=== PATIENT | male | born 1980 | race Two or more races ===

== ENCOUNTER 2017-02-07 20:47 | Inpatient (IN) | payer MEDICAID ==
[~2017-02-07] VITALS: Ht 157.5 cm; Wt 60.0 kg
[2017-02-07 21:52] LABS: Basophils # (auto) 0 uL; Eosinophils # (auto) 0 uL; Eosinophils % (auto) 0.1 % (0.0-7.0); Hematocrit 47.7 % (41.0-53.0); Hemoglobin 15.7 g/dL (13.5-17.5); Lymphocytes # (auto) 1.2 uL; Lymphocytes % (auto) 8.9 % (10.0-50.0); Mean Corpuscular Hemoglobin 30.1 pg (28.0-32.0); Mean Corpuscular Hgb Conc. 32.8 g/dL (32.0-36.0); Mean Corpuscular Volume 91.6 fL (80.0-100.0); Mean Platelet Volume 8.3 fL (7.4-10.4); Monocytes # (auto) 0.3 uL; Monocytes % (auto) 2.6 % (0.0-12.0); Neutrophils # (auto) 11.6 uL; Neutrophils % (auto) 88.4 % (37.0-80.0); Platelet Count (auto) 321 10^3/uL (140-450); White Blood Cell 13.1 10^3/uL (4.4-10.8)
[2017-02-07 22:10] LABS: Amylase 50 U/L (25-115); Anion Gap 11 (5-15); Aspartate Aminotransferase 48 U/L (15-37); BUN/Creatinine Ratio 15.8; Blood Urea Nitrogen 28 mg/dL (7-18); Calcium 8.8 mg/dL (8.5-10.1); Carbon Dioxide 22 mmol/L (21-32); Chloride 105 mmol/L (98-107); GFR African American 56 mL/min; GFR Non-African American 46 mL/min; Glucose 113 mg/dL (74-106); Potassium 4.8 mmol/L (3.5-5.1); Sodium 138 mmol/L (136-145)
[2017-02-07 22:15] LABS: Alkaline Phosphatase 113 U/L (45-117); Bilirubin, Total 0.7 mg/dL (0.2-1.0); Total Protein 8.2 g/dL (6.4-8.2)
[2017-02-08] MEDS ORDERED: ONDANSETRON HCL 4 MG/2 ML VIAL ONE (00:40)
[2017-02-08] MEDS ORDERED: MORPHINE SULFATE 4 MG/ML SYRG ONE (00:40)
[2017-02-08] MEDS ORDERED: MORPHINE SULFATE 4 MG/ML SYRG IV ONE (00:45)
[2017-02-08] MEDS ORDERED: ONDANSETRON HCL 4 MG/2 ML VIAL IV ONE ×2 (00:45→02:00)
[2017-02-08] MEDS ORDERED: KETOROLAC TROMETH 30 MG/ML 1ML VIAL IV ONE ×2 (01:45→02:00)
[2017-02-08] MEDS ORDERED: SODIUM CHLORIDE 0.9% 1,000 ML IV ONE (01:53)
[2017-02-08] MEDS ORDERED: SODIUM CHLORIDE 0.9% 250 ML IV ONE (01:53)
[2017-02-08] MEDS ORDERED: PIPERACILLIN-TAZOB 3.375GM 100 ML IV ONE (02:00)
[2017-02-08] MEDS ORDERED: SODIUM CHLORIDE 0.9% 1,000 ML IV SCH (05:34)
[2017-02-08] MEDS ORDERED: ACETAMINOPHEN 325 MG TAB PO PRN (05:45)
[2017-02-08] MEDS ORDERED: ONDANSETRON HCL 4 MG/2 ML VIAL IV PRN (05:45)
[2017-02-08] MEDS ORDERED: TAMSULOSIN HYDROCHLORIDE 0.4 MG CAP PO ONE (05:45)
[2017-02-08] MEDS ORDERED: TEMAZEPAM 15 MG CAP PO PRN (05:45)
[2017-02-08] MEDS ORDERED: KETOROLAC TROMETH 30 MG/ML 1ML VIAL IV PRN (05:45)
[2017-02-08] MEDS ORDERED: HYDROcodone-ACET 5/325MG TAB PO PRN (05:45)
[2017-02-08] MEDS ORDERED: FAMOTIDINE 20 MG TAB PO SCH (10:00)
[2017-02-08 11:27] LABS: INR 0.96 (0.9-1.15); Partial Thromboplastin Time 23.6 sec (22.64-33.71); Prothrombin Time 10.4 sec (9.37-12.3)
[2017-02-08 12:21] VITALS: BP 122/69
== END 2017-02-08 13:13 | disposition left against medical advice (07) | DRG 465 ==
LOC: EDBD 20:47 → ER 20:47 → OVERFLOW 20:48 → EAST 02-08 07:47
PROVIDERS: ADMIT Nurse Practitioner; ATTEND Family Medicine
DX: N13.2 Hydronephrosis with renal and ureteral calculous obstruction (principal); N39.0 Urinary tract infection, site not specified; F17.210 Nicotine dependence, cigarettes, uncomplicated; D72.825 Bandemia; F12.90 Cannabis use, unspecified, uncomplicated; Z82.49 Family history of ischemic heart disease and other diseases of the circulatory system; Z84.1 Family history of disorders of kidney and ureter
CPT/HCPCS: 36415; 74176; 80053; 80074; 82150; 83690; 84484; 85025; 85610; 85730; 87040; 96365; 96375; 96376; J1885; J2405; J2543

== ENCOUNTER 2020-12-18 07:35 | Emergency (ER) | payer MEDICAID ==
[~2020-12-18] VITALS: Ht 165.1 cm; Wt 72.6 kg
[2020-12-18 07:37] VITALS: BP 139/92
== END 2020-12-18 08:49 | disposition left against medical advice (07) ==
LOC: ER 07:35
DX: J02.9 Acute pharyngitis, unspecified (principal); Z53.21 Procedure and treatment not carried out due to patient leaving prior to being seen by health care provider

== ENCOUNTER 2021-04-02 13:58 | Emergency (ER) | payer MEDICAID ==
[~2021-04-02] VITALS: Ht 167.6 cm; Wt 72.6 kg
[2021-04-02] MEDS ORDERED: ASPirin 81 mg TAB PO ONE (14:15)
[2021-04-02 14:33] LABS: Basophils # (auto) 0.1 10 ^3/uL (0-0.2); Basophils % (auto) 0.7 % (0.0-2.0); Eosinophils # (auto) 0 10 ^3/uL (0-0.8); Eosinophils % (auto) 0.2 % (0.0-7.0); Hematocrit 49.2 % (41.0-53.0); Hemoglobin 16.9 g/dL (13.5-17.5); Lymphocytes # (auto) 1.4 10 ^3/uL (0.4-5.4); Lymphocytes % (auto) 14.7 % (10.0-50.0); Mean Corpuscular Hgb Conc. 34.3 g/dL (32.0-36.0); Mean Corpuscular Volume 90.4 fL (80.0-100.0); Monocytes # (auto) 0.4 10 ^3/uL (0-1.3); Monocytes % (auto) 4.3 % (0.0-12.0); Neutrophils # (auto) 7.9 10 ^3/uL (1.6-8.6); Neutrophils % (auto) 80.1 % (37.0-80.0); Nucleated Red Blood Cells % 0.1 %; Red Blood Cells 5.44 10^6/uL (4.5-5.90); Red Cell Distribution Width 13.7 % (11.8-14.3); White Blood Cell 9.9 10^3/uL (4.4-10.8)
[2021-04-02 14:44] VITALS: BP 158/108
[2021-04-02 15:01] LABS: Calcium 9.6 mg/dL (8.5-10.1); Chloride 106 mmol/L (98-107); Potassium 4.7 mmol/L (3.5-5.1); Sodium 141 mmol/L (136-145)
[2021-04-02 15:05] LABS: Alanine Aminotransferase 66 U/L (16-61); Albumin 4.2 g/dL (3.4-5.0); Anion Gap 5 (5-15); Aspartate Aminotransferase 27 U/L (15-37); BUN/Creatinine Ratio 11.5; Blood Urea Nitrogen 13 mg/dL (7-18); Carbon Dioxide 30 mmol/L (21-32); GFR African American 92 mL/min; GFR Non-African American 76 mL/min; Glucose 120 mg/dL (74-106); Magnesium 2.6 mg/dL (1.6-2.6)
[2021-04-02 15:09] LABS: Alkaline Phosphatase 115 U/L (45-117); Bilirubin, Total 0.8 mg/dL (0.2-1.0); Total Protein 8.8 g/dL (6.4-8.2)
== END 2021-04-02 16:00 | disposition home or self-care (01) ==
LOC: EDBD 13:58 → ER 13:58
DX: R07.89 Other chest pain (principal); F15.10 Other stimulant abuse, uncomplicated; F17.210 Nicotine dependence, cigarettes, uncomplicated; F12.10 Cannabis abuse, uncomplicated
CPT/HCPCS: 36415; 71045; 80053; 83735; 84484; 85025; 93005

== ENCOUNTER 2021-07-08 08:15 | Inpatient (IN) | payer OTHER, MEDICAID ==
[~2021-07-08] VITALS: Ht 172.7 cm; Wt 66.1 kg
[2021-07-08 09:14] LABS: Basophils # (auto) 0.1 10 ^3/uL (0-0.2); Basophils % (auto) 0.8 % (0.0-2.0); Eosinophils # (auto) 0.1 10 ^3/uL (0-0.8); Eosinophils % (auto) 0.9 % (0.0-7.0); Hematocrit 45.3 % (41.0-53.0); Hemoglobin 15.4 g/dL (13.5-17.5); Lymphocytes # (auto) 2.5 10 ^3/uL (0.4-5.4); Lymphocytes % (auto) 29.7 % (10.0-50.0); Mean Corpuscular Hemoglobin 30.6 pg (28.0-32.0); Monocytes # (auto) 0.5 10 ^3/uL (0-1.3); Monocytes % (auto) 6.3 % (0.0-12.0); Neutrophils # (auto) 5.3 10 ^3/uL (1.6-8.6); Neutrophils % (auto) 62.3 % (37.0-80.0); Nucleated Red Blood Cells % 0.1 %; Red Blood Cells 5.03 10^6/uL (4.5-5.90); White Blood Cell 8.5 10^3/uL (4.4-10.8)
[2021-07-08] MEDS ORDERED: SODIUM CHLORIDE 0.9% 1,000 ML IV ONE ×3 (09:15→12:00)
[2021-07-08] MEDS ORDERED: KETOROLAC TROMETH 30 MG/ML 1ML VIAL IV ONE (09:15)
[2021-07-08 09:35] LABS: Potassium 3.9 mmol/L (3.5-5.1)
[2021-07-08 09:43] LABS: Albumin 3.9 g/dL (3.4-5.0); BUN/Creatinine Ratio 10.7; Bilirubin, Total 0.8 mg/dL (0.2-1.0); Calcium 8.9 mg/dL (8.5-10.1); Total Protein 7.7 g/dL (6.4-8.2)
[2021-07-08] MEDS ORDERED: ONDANSETRON HCL 4 MG/2 ML VIAL IV ONE (10:00)
[2021-07-08] MEDS ORDERED: TAMSULOSIN HYDROCHLORIDE 0.4 MG CAP PO ONE (12:00)
[2021-07-08] MEDS ORDERED: MORPHINE SULFATE INJECTION 2 MG/ML SYRG IV PRN ×2 (12:30)
[2021-07-08] MEDS ORDERED: ONDANSETRON HCL 4 MG/2 ML VIAL IV PRN (12:30)
[2021-07-08] MEDS ORDERED: NITROGLYCERIN 0.4 MG SL TAB SL PRN (12:30)
[2021-07-08] MEDS ORDERED: ACETAMINOPHEN 500 MG TAB PO PRN (12:30)
[2021-07-08 14:25] LABS: Urine Amorphous Crystal MOD /hpf (None Seen); Urine Bacteria FEW /hpf (None Seen); Urine Blood 1+ /uL (Negative); Urine Budding Yeast MODERATE /hpf (None Seen); Urine Specific Gravity 1.011 (1.001-1.035); Urine WBC 3 /hpf (0 - 3)
[2021-07-08 14:48] LABS: Alcohol, Urine < 3.0 mg/dL (0-10); Amphetamine Screen, Urine POSITIVE (NEGATIVE); Barbiturate Scree,Urine NEGATIVE (NEGATIVE); Benzodiazephine Screen, Urine NEGATIVE (NEGATIVE); Cannabinoid Screen, Urine NEGATIVE (NEGATIVE); Cocaine Screen, Urine NEGATIVE (NEGATIVE); Opiate Scree,Urine NEGATIVE (NEGATIVE); Phencyclidine Screen, Urine NEGATIVE (NEGATIVE)
[2021-07-08] MEDS: SODIUM CHLORIDE 0.9% 1,000 ML IV SCH ×4 (15:03→22:10)
[2021-07-08] MEDS: HYDROcodone-ACET 5/325MG TAB PO PRN (15:49)
[2021-07-08] MEDS: MANNITOL FTV 25% 12.5 GM/50 ML 50 ML IV ONE ×2 (20:17→23:12)
[2021-07-08] MEDS: DOCUSATE SOD 100 MG CAP PO SCH (21:10)
[2021-07-08 22:00] VITALS: BP 147/88
[2021-07-09 05:00] VITALS: BP 142/98
[2021-07-09] MEDS ORDERED: MANNITOL FTV 25% 12.5 GM/50 ML 50 ML IV ONE (08:30)
[2021-07-09 08:59] VITALS: BP 154/100
[2021-07-09] MEDS: DOCUSATE SOD 100 MG CAP PO SCH (09:34)
[2021-07-09 12:47] VITALS: BP 148/92
[2021-07-09] MEDS: HYDROcodone-ACET 5/325MG TAB PO PRN (13:15)
[2021-07-09 14:01] VITALS: BP 148/92
[2021-07-09] MEDS ORDERED: TAMSULOSIN HYDROCHLORIDE 0.4 MG CAP PO SCH (18:00)
== END 2021-07-09 16:30 | disposition home or self-care (01) | DRG 465 ==
LOC: EDBD 08:15 → ER 08:15 → OVERFLOW 12:17 → WEST WING 17:23
PROVIDERS: ADMIT Nurse Practitioner Acute Care; ATTEND Family Medicine
DX: N13.2 Hydronephrosis with renal and ureteral calculous obstruction (principal); D72.829 Elevated white blood cell count, unspecified; N13.9 Obstructive and reflux uropathy, unspecified; R07.89 Other chest pain; F15.90 Other stimulant use, unspecified, uncomplicated; Z20.822 Contact with and (suspected) exposure to COVID-19; K21.9 Gastro-esophageal reflux disease without esophagitis; Z72.0 Tobacco use
CPT/HCPCS: 36415; 74176; 80053; 80307; 81001; 83690; 85025; 87426; 93005; 96361; 96374; 96375; G0378; J1885; J2405

== ENCOUNTER 2021-10-20 15:37 | Emergency (ER) | payer OTHER, MEDICAID ==
[~2021-10-20] VITALS: Ht 167.6 cm; Wt 70.3 kg
[2021-10-20 16:02] VITALS: BP 134/110
[2021-10-20] MEDS ORDERED: ASPirin 81 mg TAB PO ONE (17:45)
[2021-10-20 17:53] LABS: Basophils # (auto) 0.1 10 ^3/uL (0-0.2); Basophils % (auto) 0.9 % (0.0-2.0); Eosinophils # (auto) 0.1 10 ^3/uL (0-0.8); Eosinophils % (auto) 1.7 % (0.0-7.0); Hematocrit 42.2 % (41.0-53.0); Hemoglobin 14.4 g/dL (13.5-17.5); Lymphocytes # (auto) 2.5 10 ^3/uL (0.4-5.4); Lymphocytes % (auto) 39.3 % (10.0-50.0); Mean Corpuscular Hemoglobin 30.6 pg (28.0-32.0); Monocytes # (auto) 0.3 10 ^3/uL (0-1.3); Neutrophils # (auto) 3.3 10 ^3/uL (1.6-8.6); Neutrophils % (auto) 53.1 % (37.0-80.0); Nucleated Red Blood Cells % 0.2 %; Red Blood Cells 4.69 10^6/uL (4.5-5.90); Red Cell Distribution Width 14.2 % (11.8-14.3); White Blood Cell 6.3 10^3/uL (4.4-10.8)
[2021-10-20 18:09] LABS: Albumin 3.4 g/dL (3.4-5.0); Calcium 8.2 mg/dL (8.5-10.1); Potassium 4.7 mmol/L (3.5-5.1)
[2021-10-20 18:16] LABS: BUN/Creatinine Ratio 12.1; Bilirubin, Total 0.3 mg/dL (0.2-1.0); Total Protein 7.1 g/dL (6.4-8.2)
== END 2021-10-20 21:20 | disposition left against medical advice (07) ==
LOC: ER 15:37
DX: R07.89 Other chest pain (principal); F17.210 Nicotine dependence, cigarettes, uncomplicated; F12.10 Cannabis abuse, uncomplicated; Z53.29 Procedure and treatment not carried out because of patient's decision for other reasons
CPT/HCPCS: 36415; 71045; 80053; 84484; 85025; 93005

== ENCOUNTER 2021-10-22 10:13 | Emergency (ER) | payer OTHER, MEDICAID ==
[~2021-10-22] VITALS: Ht 167.6 cm; Wt 70.3 kg
[2021-10-22] MEDS ORDERED: ONDANSETRON HCL 4 MG/2 ML VIAL IV ONE (10:30)
[2021-10-22] MEDS ORDERED: PANTOPRAZOLE 40 MG/10 ML VIAL INJ IV ONE (10:30)
[2021-10-22] MEDS ORDERED: SODIUM CHLORIDE 0.9% 1,000 ML IVB ONE (10:30)
[2021-10-22 11:06] LABS: Basophils # (auto) 0.1 10 ^3/uL (0-0.2); Basophils % (auto) 1.9 % (0.0-2.0); Eosinophils # (auto) 0.1 10 ^3/uL (0-0.8); Eosinophils % (auto) 1.8 % (0.0-7.0); Hematocrit 45.3 % (41.0-53.0); Hemoglobin 15.5 g/dL (13.5-17.5); Lymphocytes # (auto) 1.9 10 ^3/uL (0.4-5.4); Lymphocytes % (auto) 36.3 % (10.0-50.0); Mean Corpuscular Hemoglobin 30.9 pg (28.0-32.0); Mean Corpuscular Hgb Conc. 34.2 g/dL (32.0-36.0); Mean Corpuscular Volume 90.4 fL (80.0-100.0); Monocytes # (auto) 0.3 10 ^3/uL (0-1.3); Monocytes % (auto) 5.9 % (0.0-12.0); Neutrophils # (auto) 2.8 10 ^3/uL (1.6-8.6); Neutrophils % (auto) 54.1 % (37.0-80.0); Nucleated Red Blood Cells % 0.3 %; Red Blood Cells 5.01 10^6/uL (4.5-5.90); Red Cell Distribution Width 14.2 % (11.8-14.3); White Blood Cell 5.2 10^3/uL (4.4-10.8)
[2021-10-22 11:19] LABS: Urine Bacteria FEW /hpf (None Seen); Urine Blood Negative /uL (Negative); Urine Mucus FEW (None Seen); Urine Specific Gravity 1.022 (1.001-1.035); Urine Sperm PRESENT /hpf (None Seen); Urine WBC 2 /hpf (0 - 3)
[2021-10-22 11:47] LABS: Albumin 3.6 g/dL (3.4-5.0); Calcium 8.6 mg/dL (8.5-10.1); Potassium 4.8 mmol/L (3.5-5.1)
[2021-10-22 11:53] LABS: BUN/Creatinine Ratio 10.3; Bilirubin, Total 0.3 mg/dL (0.2-1.0); Total Protein 7.3 g/dL (6.4-8.2)
[2021-10-22 11:55] LABS: Alcohol, Urine < 3.0 mg/dL (0-10); Amphetamine Screen, Urine POSITIVE (NEGATIVE); Barbiturate Scree,Urine NEGATIVE (NEGATIVE); Benzodiazephine Screen, Urine NEGATIVE (NEGATIVE); Cannabinoid Screen, Urine POSITIVE (NEGATIVE); Cocaine Screen, Urine NEGATIVE (NEGATIVE)
[2021-10-22 12:02] LABS: Opiate Scree,Urine NEGATIVE (NEGATIVE); Phencyclidine Screen, Urine NEGATIVE (NEGATIVE)
[2021-10-22 13:32] VITALS: BP 126/86
== END 2021-10-22 14:26 | disposition home or self-care (01) ==
LOC: ER 10:13
DX: N20.0 Calculus of kidney (principal); R07.89 Other chest pain; R53.1 Weakness; F15.10 Other stimulant abuse, uncomplicated; F17.210 Nicotine dependence, cigarettes, uncomplicated; Z98.890 Other specified postprocedural states; Z20.822 Contact with and (suspected) exposure to COVID-19
CPT/HCPCS: 36415; 74176; 80053; 80307; 81001; 83690; 85025; 87426; 93005; 96361; 96374; 96375; 99285; C9113; J2405; J7030

== ENCOUNTER 2022-08-28 08:36 | Emergency (ER) | payer MEDICAID, OTHER ==
[~2022-08-28] VITALS: Ht 180.3 cm; Wt 68.0 kg
[2022-08-28 09:11] LABS: Basophils # (auto) 0 10 ^3/uL (0-0.2); Basophils % (auto) 0.5 % (0.0-2.0); Eosinophils # (auto) 0.1 10 ^3/uL (0-0.8); Eosinophils % (auto) 0.9 % (0.0-7.0); Hematocrit 43.3 % (41.0-53.0); Hemoglobin 14.7 g/dL (13.5-17.5); Lymphocytes # (auto) 1.3 10 ^3/uL (0.4-5.4); Lymphocytes % (auto) 13.8 % (10.0-50.0); Mean Corpuscular Hemoglobin 31.1 pg (28.0-32.0); Mean Corpuscular Volume 91.4 fL (80.0-100.0); Monocytes # (auto) 0.3 10 ^3/uL (0-1.3); Monocytes % (auto) 3.8 % (0.0-12.0); Neutrophils # (auto) 7.3 10 ^3/uL (1.6-8.6); Nucleated Red Blood Cells % 0.1 %; Red Blood Cells 4.73 10^6/uL (4.5-5.90); Red Cell Distribution Width 14.1 % (11.8-14.3); White Blood Cell 9.1 10^3/uL (4.4-10.8)
[2022-08-28 09:18] LABS: Albumin 3.5 g/dL (3.4-5.0); Calcium 8.8 mg/dL (8.5-10.1); Potassium 4.3 mmol/L (3.5-5.1)
[2022-08-28 09:21] LABS: BUN/Creatinine Ratio 20.6; Bilirubin, Total 0.5 mg/dL (0.2-1.0)
[2022-08-28] MEDS ORDERED: HYDROmorphone HCL 2 MG/ML VL/or syr IV ONE (09:45)
[2022-08-28] MEDS ORDERED: KETOROLAC TROMETH 30 MG/ML 1ML VIAL IV ONE (09:45)
[2022-08-28] MEDS ORDERED: SODIUM CHLORIDE 0.9% 1,000 ML IVB ONE (09:45)
[2022-08-28] MEDS ORDERED: TAMSULOSIN HYDROCHLORIDE 0.4 MG CAP PO ONE (09:45)
[2022-08-28] MEDS ORDERED: METOCLOPRAMIDE HCL 5MG/ml INJ 2ml VIAL IV ONE (09:45)
[2022-08-28 09:58] LABS: Urine Bacteria NONE SEEN /hpf (None Seen); Urine Blood 3+ /uL (Negative); Urine Specific Gravity 1.019 (1.001-1.035); Urine WBC 4 /hpf (0 - 3)
[2022-08-28] MEDS ORDERED: HYDR-4902 PO (11:25)
[2022-08-28] MEDS ORDERED: TAM04C PO (11:25)
[2022-08-28] MEDS ORDERED: DICL50TA2 PO (11:25)
[2022-08-28 12:28] VITALS: BP 138/77
== END 2022-08-28 12:17 | disposition home or self-care (01) ==
LOC: ER 08:36
DX: N13.30 Unspecified hydronephrosis (principal); N20.1 Calculus of ureter; F17.210 Nicotine dependence, cigarettes, uncomplicated
CPT/HCPCS: 36415; 74176; 80053; 81001; 85025; 96374; 96375; 99284; J1885; J2765

== ENCOUNTER 2023-12-28 21:55 | Emergency (ER) | payer MEDICAID ==
[~2023-12-28] VITALS: Ht 167.6 cm; Wt 70.5 kg
[~2023-12-28 21:55] MED LIST: CIPR-173 PO; DICL50TA2 PO; HYDR-4902 PO; TAMS-35 PO
[2023-12-28 22:10] VITALS: BP 147/102; PULSE 91; RESP 17; TEMP 98.8; O2SAT 96
[2023-12-29] MEDS ORDERED: CLIN300C70 PO (02:47)
[2023-12-29] MEDS ORDERED: IBUP-1456 PO (02:47)
[2023-12-29] MEDS: cefTRIAXone SOD 1,000 MG VL IM ONE (04:05)
[2023-12-29] MEDS: KETOROLAC TROMETH 60MG/2ML VIAL IM ONE (04:06)
== END 2023-12-29 02:33 | disposition home or self-care (01) ==
LOC: ER 21:55
DX: L03.012 Cellulitis of left finger (principal)
CPT/HCPCS: 96372; 99284; J0696; J1885

== ENCOUNTER 2024-03-13 01:43 | Emergency (ER) | payer MEDICAID ==
[~2024-03-13] VITALS: Ht 167.6 cm; Wt 86.4 kg
[~2024-03-13 01:43] MED LIST changes: +CLIN1CAP70 PO; +IBUP-1456 PO
[2024-03-13 02:11] VITALS: BP 142/99; PULSE 78; RESP 16; O2SAT 96
[2024-03-13] MEDS ORDERED: METO-281 PO (02:29)
[2024-03-13] MEDS ORDERED: METOCLOPRAMIDE HCL 5MG/ml INJ 2ml VIAL IM ONE (02:30)
== END 2024-03-13 04:57 | disposition home or self-care (01) ==
LOC: EDBD 01:43 → ER 01:43
DX: F12.10 Cannabis abuse, uncomplicated (principal); R11.2 Nausea with vomiting, unspecified; R10.9 Unspecified abdominal pain; F17.210 Nicotine dependence, cigarettes, uncomplicated; F15.90 Other stimulant use, unspecified, uncomplicated; Z79.899 Other long term (current) drug therapy; Z98.890 Other specified postprocedural states

== ENCOUNTER 2024-10-30 07:34 | Inpatient (IN) | payer MEDICAID ==
[~2024-10-30] VITALS: Ht 167.6 cm; Wt 72.3 kg
[~2024-10-30 07:34] MED LIST changes: +METO-281 PO
--- NOTE | 2024-10-30 08:26 | ED.PDOC ---
History of Present Illness HPI Comments 44 year old male brought in by EMS with a chief complaint of LT flank pain onset 1 week. Patient states he has been experiencing LT flank pain for the past week, cough and hematemesis for the past 2 days. Patient denies PMHx. No other symptoms or modifying factors present at this time. Chief Complaint: Shortness of Breath Time Seen by MD: 08:04 Primary Care Provider: [facility] Reviewed Notes: Medications, Allergies Allergies: Coded Allergies: NO KNOWN ALLERGIES (Unverified , 02/07/17) Home Meds Active Scripts Metoclopramide Hcl (Reglan) 10 Mg Tab, 10 MG PO Q6HPRN PRN, #20 TAB Prov:JULI MERAZ DO 03/13/24 Ibuprofen (Ibuprofen) 800 Mg Tab, 1 TAB PO TID PRN, #30 TAB 0 Refills Prov:ADRIANE SCHERER 12/29/23 Clindamycin Hcl (Clindamycin Hcl) 300 Mg Cap, 1 CAP PO TID for 7 Days, #21 CAP 0 Refills Prov:ADRIANE SCHERER 12/29/23 Tamsulosin Hcl (Flomax) 0.4 Mg Cap, 1 CAP PO DAILY for 10 Days, #10 CAP 11 Refills Prov:ANOOP CAMACHO SERVICE DELIVERY ANALYST 10/12/23 Ciprofloxacin Hcl (Cipro) 500 Mg Tab, 1 TAB PO BID for 7 Days, #14 TAB Prov:ANOOP CAMACHO SERVICE DELIVERY ANALYST 10/12/23 Hydrocodone-Acetaminophen (Hydrocodone Bitartrate/AC 5-325 mg) 1 Tab Tab, 1 TAB PO TID PRN for 10 Days, #30 TAB Prov:ALFONSO ANTOINE MD 08/28/22 Tamsulosin Hcl (Flomax) 0.4 Mg Cap, 1 CAP PO BID for 5 Days, #10 CAP 11 Refills Prov:ALFONSO ANTOINE MD 08/28/22 Diclofenac Potassium (Diclofenac Potassium) 50 Mg Tab, 1 TAB PO TIDP for 10 Days, #30 TAB Prov:ALFONSO ANTOINE MD 08/28/22 Information Source: Patient Mode of Arrival: EMS Severity: Moderate Timing: Weeks Duration: Since onset Prehospital treatment: None Past Medical History PAST MEDICAL HISTORY: Denies Surgical History: Hernia Repair Family History Family History: Reviewed,noncontributory to illness Social History Smoker: Cigarettes, Less Than 1 Pack/Day Alcohol: Occasionally Drugs: Marijuana, Methamphetamine Lives In: Home Constitutional: denies: chills, diaphoresis, fatigue, fever, malaise, sweats, weakness, others EENTM: denies: blurred vision, double vision, ear bleeding, ear discharge, ear drainage, ear pain, ear ringing, eye pain, eye redness, hearing loss, mouth pain, mouth swelling, nasal discharge, nose bleeding, nose congestion, nose pain, photophobia, tearing, throat pain, throat swelling, voice changes, others Respiratory: reports: cough; denies: hemoptysis, orthopnea, SOB at rest, shortness of breath, SOB with excertion, stridor, wheezing, others Cardiovascular: denies: chest pain, dizzy spells, diaphoresis, Dyspnea on exertion, edema, irregular heart beat, left arm pain, lightheadedness, palpitations, PND, syncope, others Gastrointestinal: reports: hematemesis, vomiting; denies: abdomen distended, abdominal pain, blood streaked bowels, constipated, diarrhea, dysphagia, difficulty swallowing, melena, nausea, poor appetite, poor fluid intake, rectal bleeding, rectal pain, others Genitourinary: reports: flank pain (LT); denies: burning, dysuria, frequency, hematuria, incontinence, penile discharge, penile sore, pain, testicle pain, testicle swelling, urgency, others Neurological: denies: dizziness, fainting, headache, left sided numbness, left sided weakness, numbness, paresthesia, pre-existing deficit, right sided numbness, right sided weakness, seizure, speech problems, tingling, tremors, weakness, others Musculoskeletal: denies: back pain, gout, joint pain, joint swelling, muscle pain, muscle stiffness, neck pain, others Integumetry: denies: bruises, change in color, change in hair/nails, dryness, laceration, lesions, lumps, rash, wounds, others Allergic/Immunocompromised: denies: Difficulty Healing, Frequent Infections, Hives, Itching, others Hematologic/Lymphatic: denies: anemia, blood clots, easy bleeding, easy bruis ing, swollen glands, others Endocrine: denies: excessive hunger, excessive sweating, excessive thirst, exc essive urination, flushing, intolerance to cold, intolerance to heat, unexplained weight gain, unexplained weight loss, others Psychiatric: denies: anxiety, bipolar disorder, depression, hopeless, panic disorder, schizophrenia, sleepless, suicidal, others All Other Systems: Reviewed and Negative Physical Exam General Appearance: Moderate Distress HEENT: Normal ENT Inspection, Pharynx Normal, TMs Normal Neck: Full Range of Motion, Non-Tender, Normal, Normal Inspection Respiratory: Other (Coarse breath sounds) Cardiovascular: No Edema, No JVD, No Murmur, No Gallop, Normal Peripheral Pulses, Regular Rate/Rhythm Breast Exam: Deferred Gastrointestinal: No Organomegaly, Non Tender, No Pulsatile Mass, Normal Bowel Sounds, Soft Genitalia: Deferred Pelvic: Deferred Rectal: Deferred Extremities: No calf tenderness, Normal capillary refill, Normal inspection, Normal range of motion, Non-tender, No pedal edema Musculoskeletal : Apperance: Normal Neurologic: Alert, plush cutter II-XII nml as Tested, No Motor Deficits, Normal Affect, Normal Mood, No Sensory Deficits Cerebellar Function: Normal Reflexes: Normal Skin: Dry, Normal Color, Warm Peripheral Pulses: 3+ Radial (R), 3+ Radial (L) Lymphatic: No Adenopathy Was a procedure done? Was a procedure done?: No Differential Dx Considerations may include: Pneumonia Electrolyte imbalance X-Ray, Labs, Meds, VS Vital Signs Date Time Temp Pulse Resp B/P (MAP) Pulse Ox O2 Delivery O2 Flow Rate FiO2 10/30/24 07:52 98.0 90 16 157/93 (114) 96 Lab Test 10/30/24 09:54 Range/Units White Blood Count 11.9 H 4.4-10.8 10^3/uL Red Blood Count 4.50 4.5-5.90 10^6/uL Hemoglobin 13.3 L 13.5-17.5 g/dL Hematocrit 40.7 L 41.0-53.0 % Mean Corpuscular Volume 90.4 80.0-100.0 fL Mean Corpuscular Hemoglobin 29.7 28.0-32.0 pg Mean Corpuscular Hemoglobin Concent 32.8 32.0-36.0 g/dL Red Cell Distribution Width 14.1 11.8-14.3 % Platelet Count 272 140-450 10^3/uL Mean Platelet Volume 7.7 6.9-10.8 fL Neutrophils (%) (Auto) 37.0-80.0 % Lymphocytes (%) (Auto) 10.0-50.0 % Monocytes (%) (Auto) 0.0-12.0 % Basophils (%) (Auto) 0.0-2.0 % Neutrophils # (Auto) 1.6-8.6 10 ^3/uL Lymphocytes # (Auto) 0.4-5.4 10 ^3/uL Monocytes # (Auto) 0-1.3 10 ^3/uL Differential Total Cells Counted Pending Neutrophils % (Manual) Pending Band Neutrophils % (Manual) Pending Lymphocytes % (Manual) Pending Monocytes % (Manual) Pending Eosinophils % (Manual) Pending Basophils % (Manual) Pending Metamyelocytes % (manual) Pending Myelocytes % (Manual) Pending Promyelocytes % (Manual) Pending Blast Cells % (Manual) Pending Reactive Lymphocytes Pending Platelet Estimate Pending D-Dimer, Quantitative 1.78 H 0.0-0.49 mg/L FEU Sodium Level 138 136-145 mmol/L Potassium Level 4.6 3.5-5.1 mmol/L Chloride Level 108 H 98-107 mmol/L Carbon Dioxide Level 19 L 20-31 mmol/L Anion Gap 11 5-15 Blood Urea Nitrogen 7 L 9-23 mg/dL Creatinine 0.86 0.700-1.30 mg/dL Glomerular Filtration Rate Calc 109 >90 mL/min BUN/Creatinine Ratio 8.1 L 10.0-20.0 Serum Glucose 104 74-106 mg/dL Calcium Level 9.7 8.7-10.4 mg/dL Patient alert. Complaining of shortness a breath. Chest x-ray does show pneumonia. Vitals stable. WBC elevated. Establish intravenous access. Was given fluids. Was given Rocephin. Was given azithromycin. D-dimer elevated. Was given Lovenox. Explained to the patient. Continue cardiac monitoring. Time of 1ST Reevaluation: 08:34 Reevaluation 1ST: Unchanged Patient Education/Counseling: Diagnosis, Treatment, Prognosis Family Education/Counseling: No Family Present Additional Information I reviewed the following notes from patient's past medical encounters: The following tests were ordered, and results were reviewed by me: CBC, D-DIMER, XY CHEST, BMP Additional Information was gathered from interviewing the following independent historians: EMS I reviewed and agreed with the following test results read by other providers: DENISSE CHEST I discussed treatment and results with medical personnel and: patient Departure 1 Departure Time of Disposition: 10:48 Impression: Primary Impression: Pneumonia Qualified Codes: J18.9 - Pneumonia, unspecified organism Additional Impression: Acute respiratory distress Disposition: 09 ADMITTED INPATIENT Admit to: Med Surg Condition: Guarded Critical Care Note Critical Care Time?: Yes (90 min-critical care time only) Stability Stability form required: No Heart Score Heart Score: Heart Score Response (Comments) Value History N/A 0 EKG N/A 0 Age N/A 0 Risk Factors N/A 0 Troponin N/A 0 Total 0 I personally scribed for FLORIDALMA MOJICA MD ([email or web address]) on 10/30/24 at 08:26. Electronically submitted by Sandy Colbert ([email or web address]). I personally scribed for FLORIDALMA MOJICA MD ([email or web address]) on 10/30/24 at 09:10. Electronically submitted by Sandy Colbert ([email or web address]). FLORIDALMA MOJICA MD Oct 30, 2024 08:26
--- NOTE | 2024-10-30 09:35 | DVH ---
CHEST RADIOGRAPH Indication: sob Technique: Single frontal view of the chest was obtained Comparison: CHEST PORTABLE on DOS: 10/20/21, CHEST PORTABLE on DOS: 04/02/21 FINDINGS: Lines and Tubes: None Lungs: Right lower lung zone patchy and curvilinear opacities. Pleura: No effusion. No pneumothorax. Cardiomediastinal contours: Unremarkable Bones: No acute osseous abnormality. IMPRESSION: 1. Right basilar opacities could represent infiltrate versus atelectasis. HS:Y
[2024-10-30 10:18] LABS: Hematocrit 40.7 % (41.0-53.0); Hemoglobin 13.3 g/dL (13.5-17.5); Mean Corpuscular Hemoglobin 29.7 pg (28.0-32.0); Mean Corpuscular Hgb Conc. 32.8 g/dL (32.0-36.0); Mean Corpuscular Volume 90.4 fL (80.0-100.0); Platelet Count (auto) 272 10^3/uL (140-450); Red Cell Distribution Width 14.1 % (11.8-14.3); White Blood Cell 11.9 10^3/uL (4.4-10.8)
[2024-10-30 10:23] LABS: Potassium 4.6 mmol/L (3.5-5.1); Sodium 138 mmol/L (136-145)
[2024-10-30 10:25] LABS: Anion Gap 11 (5-15); Calcium 9.7 mg/dL (8.7-10.4)
[2024-10-30 10:26] LABS: Basophils % (manual) 0 (0.0-2.0); Blast Cells 0; Eosinophils % (manual) 0 (0-7); Metamyelocytes % 0; Myelocytes % 0; Promyelocytes % 0; Reactive Lymphocytes 0
[2024-10-30 10:27] LABS: Carbon Dioxide 19 mmol/L (20-31); Chloride 108 mmol/L (98-107)
[2024-10-30 10:30] LABS: BUN/Creatinine Ratio 8.1 (10.0-20.0); Glucose 104 mg/dL (74-106)
[2024-10-30 10:31] LABS: Blood Urea Nitrogen 7 mg/dL (9-23)
[2024-10-30] MEDS: AZITHROMYCIN 500MG/ 250ML 250 ML IV ONE (11:00)
[2024-10-30 13:05] LABS: Band Neutrophils % (manual) 5; Lymphocytes % (manual) 25 (10.0-50.0); Monocytes % (manual) 5 (0-12); Platelet Estimate Adequate
--- NOTE | 2024-10-30 13:57 | DVH ---
Exam: CT CT AB PEL WO CON-NO ORAL OR IV History: flank pain Comparison Study: CT CT AB PEL WO CON-NO ORAL OR IV on DOS: 10/12/23, CT ABD PELVIS WO CONTRAST on D OS: 08/28/22, CT ABD PELVIS WO CONTRAST on DOS: 10/22/21 Technique: Multidetector spiral CT of the abdomen and pelvis was performed from lung bases to pubic symphysis. Imaging was performed without IV contrast. Axial, coronal and sagittal multiplanar reform ats were obtained from the axial data set by the technologist. Radiation dose : Abdomen/Pelvis: CTDIvol 5 mGy, DLP 289 mGy*cm. Findings: Evaluation of solid organs is limited due to lack of intravenous contrast use. Lung Bases: Patchy consolidation in the visualized left lower lobe and right middle lobe Liver: The liver is normal in size. No focal lesions. Gallbladder and biliary Tree: Unremarkable Spleen: Unremarkable Pancreas: The pancreas is grossly normal in appearance. Adrenal Glands: Unremarkable Kidneys: Punctate nonobstructive right upper pole renal calculus. No hydronephrosis. Bladder: Grossly unremarkable for degree of distention. Bowel: The stomach is grossly normal in appearance. Small bowel and colon are normal in caliber and d istribution. Normal appendix is visualized in the right lower quadrant without findings of appendici tis. Sigmoid diverticulosis. Ascites: Absent Lymphadenopathy: No mesenteric, retroperitoneal or periportal lymphadenopathy. Abdominal wall and Mesentery: Unremarkable. Vasculature: Mild calcified atherosclerotic disease. Pelvic Organs: Unremarkable Musculoskeletal: No aggressive focal bony lesions, acute fractures or dislocation. IMPRESSION: 1. Patchy consolidation in the lung bases. Pneumonia is not excluded. Consider dedicated chest CT. 2. No acute abdominal or pelvic findings. Punctate nonobstructive right upper pole renal calculus. Si gmoid diverticulosis. Radiation optimization: All CT scans at this facility use at least one of these dose optimization gurwinder hniques: Automated exposure control mA and/or kV adjustment per patient size (includes targeted exams where dose is matched to clinical indication) or iterative reconstruction. HS:Y
[2024-10-30] MEDS: cefTRIAXone 1GM/50ML D5W 50 ML IV ONE (14:56)
[2024-10-30] MEDS: ENOXAPARIN SOD 80 MG/0.8ML SYRINGE SC ONE (14:57)
[2024-10-30] MEDS ORDERED: HYDROcodone-ACET 5/325MG TAB PO PRN (15:45)
[2024-10-30] MEDS ORDERED: ONDANSETRON HCL 4 MG/2 ML VIAL IV PRN (15:45)
[2024-10-30] MEDS ORDERED: NITROGLYCERIN 0.4 MG SL TAB SL PRN (15:45)
--- NOTE | 2024-10-30 16:13 | DVHHP2 ---
History of Present Illness Reason for Visit: Left-sided flank pain, cough, hematemesis, chest pain, and SOB History of Present Illness Nick Lebron JR is a 44-year-old male with no past medical history who presents to the ED for left-sided flank pain, cough, hematemesis, chest pain, and shortness of breath x1 day. Patient states that his chest pain is sharp, constant and 10/10 but does not radiate anywhere. Patient states there are no triggering or alleviating factors. Patient reports that he had a heart murmur when he was a baby. Patient denies any fever, chills, diarrhea, lightheadedness, dizziness, and headaches. Past Surgical History: Hernia Repair Family History Patient reports unknown Smoke: <1 pack per day ALCOHOL: none Drugs: Marijuana Lives: with Family Domestic Violence: Neg Review of Systems Constitutional: No: Fever, Chills, Sweats, Weakness, Malaise, Other Eyes: No: Pain, Vision change, Conjunctivae inflammation, Eyelid inflammation, Other, Redness ENT: No: Ear pain, Ear discharge, Nose pain, Nose discharge, Nose congestion, Mouth pain, Mouth swelling, Throat pain, Throat swelling, Other Respiratory: Cough, Shortness of breath; No: Dry, SOB with excertion, Wheezing, Hemoptysis, Pleuritic Pain, Sputum, Wheezing, Other Cardiovascular: Chest Pain; No: Palpitations, Orthopnea, Paroxysmal Noc. Dyspnea, Edema, Lt Headedness, Other Gastrointestinal: No: Nausea, Vomiting, Abdominal Pain, Diarrhea, Constipation, Melena, Hematochezia, Other Genitourinary: No Dysuria, No Frequency, No Incontinence, No Hematuria, No Retention, No Other Musculoskeletal: No: other, neck pain, shoulder pain, arm pain, back pain, hand pain, leg pain, foot pain Skin: No: Rash, Lesions, Jaundice, Bruising, Other Neurological: No: Weakness, Numbness, Incoordination, Change in speech, Confusion, Seizures, Other Other Left-sided flank pain Allergies: Coded Allergies: NO KNOWN ALLERGIES (Unverified , 02/07/17) Exam Vital Signs Vital Signs Date Time Temp Pulse Resp B/P (MAP) Pulse Ox O2 Delivery O2 Flow Rate FiO2 10/30/24 14:45 Room Air* 0 21 10/30/24 14:10 97.8 94 19 150/111 (124) 97 97.8 General Appearance: Alert, Oriented X3, Cooperative, mild distress HEENT: Atraumatic, PERRLA, EOMI, Mucous membr. moist/pink Respiratory: Clear to auscultation, Normal air movement Cardiovascular: Regular rate, Normal S1, Normal S2, No murmurs Abdominal: Normal bowel sounds, Soft Extremities: No clubbing, No cyanosis, No edema, Normal pulses, No tenderness/swelling Skin: No rashes, No breakdown, No significant lesion Neuro: Normal speech, Strength at 5/5 X4 ext, Normal tone, Sensation intact Psych/Mental Status: Mental status NL, Mood NL Labs/Xrays Labs Test 10/30/24 09:54 Range/Units White Blood Count 11.9 H 4.4-10.8 10^3/uL Red Blood Count 4.50 4.5-5.90 10^6/uL Hemoglobin 13.3 L 13.5-17.5 g/dL Hematocrit 40.7 L 41.0-53.0 % Mean Corpuscular Volume 90.4 80.0-100.0 fL Mean Corpuscular Hemoglobin 29.7 28.0-32.0 pg Mean Corpuscular Hemoglobin Concent 32.8 32.0-36.0 g/dL Red Cell Distribution Width 14.1 11.8-14.3 % Platelet Count 272 140-450 10^3/uL Mean Platelet Volume 7.7 6.9-10.8 fL Neutrophils (%) (Auto) 37.0-80.0 % Lymphocytes (%) (Auto) 10.0-50.0 % Monocytes (%) (Auto) 0.0-12.0 % Basophils (%) (Auto) 0.0-2.0 % Neutrophils # (Auto) 1.6-8.6 10 ^3/uL Lymphocytes # (Auto) 0.4-5.4 10 ^3/uL Monocytes # (Auto) 0-1.3 10 ^3/uL Differential Total Cells Counted 100.0 100 Neutrophils % (Manual) 65 37.0-80.0 Band Neutrophils % (Manual) 5 Lymphocytes % (Manual) 25 10.0-50.0 Monocytes % (Manual) 5 0-12 Eosinophils % (Manual) 0 0-7 Basophils % (Manual) 0 0.0-2.0 Metamyelocytes % (manual) 0 Myelocytes % (Manual) 0 Promyelocytes % (Manual) 0 Blast Cells % (Manual) 0 Reactive Lymphocytes 0 Platelet Estimate Adequate D-Dimer, Quantitative 1.78 H 0.0-0.49 mg/L FEU Sodium Level 138 136-145 mmol/L Potassium Level 4.6 3.5-5.1 mmol/L Chloride Level 108 H 98-107 mmol/L Carbon Dioxide Level 19 L 20-31 mmol/L Anion Gap 11 5-15 Blood Urea Nitrogen 7 L 9-23 mg/dL Creatinine 0.86 0.700-1.30 mg/dL Glomerular Filtration Rate Calc 109 >90 mL/min BUN/Creatinine Ratio 8.1 L 10.0-20.0 Serum Glucose 104 74-106 mg/dL Calcium Level 9.7 8.7-10.4 mg/dL Exam: CT CT AB PEL WO CON-NO ORAL OR IV History: flank pain Comparison Study: CT CT AB PEL WO CON-NO ORAL OR IV on DOS: 10/12/23, CT ABD PELVIS WO CONTRAST on DOS: 08/28/22, CT ABD PELVIS WO CONTRAST on DOS: 10/22/21 Technique: Multidetector spiral CT of the abdomen and pelvis was performed from lung bases to pubic symphysis. Imaging was performed without IV contrast. Axial, coronal and sagittal multiplanar reformats were obtained from the axial data set by the technologist. Radiation dose : Abdomen/Pelvis: CTDIvol 5 mGy, DLP 289 mGy*cm. Findings: Evaluation of solid organs is limited due to lack of intravenous contrast use. Lung Bases: Patchy consolidation in the visualized left lower lobe and right middle lobe Liver: The liver is normal in size. No focal lesions. Gallbladder and biliary Tree: Unremarkable Spleen: Unremarkable Pancreas: The pancreas is grossly normal in appearance. Adrenal Glands: Unremarkable Kidneys: Punctate nonobstructive right upper pole renal calculus. No hydronephrosis. Bladder: Grossly unremarkable for degree of distention. Bowel: The stomach is grossly normal in appearance. Small bowel and colon are normal in caliber and distribution. Normal appendix is visualized in the right lower quadrant without findings of appendicitis. Sigmoid diverticulosis. Ascites: Absent Lymphadenopathy: No mesenteric, retroperitoneal or periportal lymphadenopathy. Abdominal wall and Mesentery: Unremarkable. Vasculature: Mild calcified atherosclerotic disease. Pelvic Organs: Unremarkable Musculoskeletal: No aggressive focal bony lesions, acute fractures or dislocation. IMPRESSION: 1. Patchy consolidation in the lung bases. Pneumonia is not excluded. Consider dedicated chest CT. 2. No acute abdominal or pelvic findings. Punctate nonobstructive right upper pole renal calculus. Sigmoid diverticulosis. CHEST RADIOGRAPH Indication: sob Technique: Single frontal view of the chest was obtained Comparison: CHEST PORTABLE on DOS: 10/20/21, CHEST PORTABLE on DOS: 04/02/21 FINDINGS: Lines and Tubes: None Lungs: Right lower lung zone patchy and curvilinear opacities. Pleura: No effusion. No pneumothorax. Cardiomediastinal contours: Unremarkable Bones: No acute osseous abnormality. IMPRESSION: 1. Right basilar opacities could represent infiltrate versus atelectasis. EXAM: CT Angiography Chest With Intravenous Contrast CLINICAL INDICATION: r/o PE TECHNIQUE: Axial computed tomographic angiography images of the chest with intravenous contrast. This CT exam was performed using one or more of the following dose reduction techniques: Automated exposure control, adjustment of the mA and/or kV according to patient size, and/or use of iterative reconstruction technique. MIP reconstructed images were created and reviewed. RADIATION DOSE: CTDlvol= 11 mGy, DLP= 267.16 mGy-cm COMPARISON: None FINDINGS: LIMITATIONS: Suboptimal opacification of the pulmonary arteries. PULMONARY ARTERIES: No pulmonary embolism is identified. Some of the distal pulmonary arteries cannot be evaluated due to suboptimal opacification. AORTA: No acute findings. No thoracic aortic aneurysm. LUNGS AND PLEURAL SPACES: Partially consolidation of the right middle lobe and left lower lobe, likely atelectasis and / or pneumonia. No significant effusion. HEART: Unremarkable. No cardiomegaly. No significant pericardial effusion. No evidence of RV dysfunction. BONES/JOINTS: No acute fracture. No dislocation. SOFT TISSUES: Unremarkable. LYMPH NODES: Unremarkable. No enlarged lymph nodes. IMPRESSION: 1. No pulmonary embolism is identified. Some of the distal pulmonary arteries cannot be evaluated due to suboptimal opacification. 2. Partially consolidation of the right middle lobe and left lower lobe, likely atelectasis and / or pneumonia. Assessment/Plan Assessment/Plan Assessment/Plan: Atypical chest pain r/o ACS Leukocytosis likely secondary to pneumonia Lovenox IV antibiotics Chest x-ray CT A/P D-dimer elevated CT A chest ekg labs echo acs protocol asa statin ekg am labs am trend trop ua uds Troponin TSH Lipid panel Punctate nonobstructive right upper pole renal calculus. Sigmoid diverticulosis. Follow up outpatient with PCP FEN/PPX cardiac diet hl DVT prophylaxis-Lovenox PUD prophylaxis not indicated no history of GERD or GI bleed No home medications to reconcile discussed plan of care with patient and nurse Admit to tele Plan discussed with: Patient My Orders Orders - DARYL ERA Procedure Category Date Status Time Ct Ab Pel Wo Con-No CT 10/30/24 Resulted Oral Or Iv 12:[address] Ct [address] 10/30/24 Logged Contrast 15:45 Ceftriaxone Ivpb PHA 10/31/24 Transmitted Rocephin 09:00 Azithromycin 500mg/ PHA 10/31/24 Transmitted 250ml (Zithromax 50 10:00 Enoxaparin Sodium PHA 10/30/24 Transmitted (Lovenox) 22:00 Admit ADMIT 10/30/24 Transmitted 15:45 Allergies ABBIE 10/30/24 Transmitted 15:45 Hydrocodone-Acet PHA 10/30/24 Transmitted 5/325mg Tab (Twining 15:45 Ondansetron Hcl PHA 10/30/24 Transmitted (Zofran) 15:45 Cardiac DIET 10/30/24 Transmitted Diet-2gna,Lofat,Lochol Dinner Acetaminophen Tablet PHA 10/30/24 Transmitted (Tylenol Tablet) 15:45 Morphine Sulfate PHA 10/30/24 Transmitted Injection 15:45 Nitroglycerin PHA 10/30/24 Transmitted Sublingual (Ntrostat 15:45 Morphine Sulfate PHA 10/30/24 Transmitted Injection 15:45 Stat Ekg For Chest ABBIE 10/30/24 Transmitted Pain 15:45 Notify Md Of Changes [facility] 10/30/24 Transmitted From Base 15:45 Imaging Administrator For ABBIE 10/30/24 Transmitted 24 Hours 15:45 Emergency Dysrhythmia ABBIE 10/30/24 Transmitted Protocol 15:45 Rhythm Strips Once ABBIE 10/30/24 Transmitted Every Shift 15:45 Oxygen By Nasal RT 10/30/24 Transmitted Cannula 15:45 Date of Service: Oct 30, 2024 Billing Provider: DARYL REA Common Visit Codes: [id number] INP/OBS CARE (HIGH) DARYL REA Oct 30, 2024 16:13
[2024-10-30 16:40] LABS: Triglycerides 100 mg/dL (< 150)
[2024-10-30 16:42] LABS: Cholesterol 190 mg/dL (< 200); HDL Cholesterol 51 mg/dL (40-59)
[2024-10-30 16:43] LABS: LDL Cholesterol 139 mg/dL (< 100)
[2024-10-30] MEDS: IOHEXOL 350 MG/ML 100ML IJ ONE (17:20)
--- NOTE | 2024-10-30 17:32 | DVH ---
EXAM: CT Angiography Chest With Intravenous Contrast CLINICAL INDICATION: r/o PE TECHNIQUE: Axial computed tomographic angiography images of the chest with intravenous contrast. This CT exam was performed using one or more of the following dose reduction techniques: Automated exposu re control, adjustment of the mA and/or kV according to patient size, and/or use of iterative reconst ruction technique. MIP reconstructed images were created and reviewed. RADIATION DOSE: CTDlvol= 11 mGy, DLP= 267.16 mGy-cm COMPARISON: None FINDINGS: LIMITATIONS: Suboptimal opacification of the pulmonary arteries. PULMONARY ARTERIES: No pulmonary embolism is identified. Some of the distal pulmonary arteries cannot be evaluated due to suboptimal opacification. AORTA: No acute findings. No thoracic aortic aneurysm. LUNGS AND PLEURAL SPACES: Partially consolidation of the right middle lobe and left lower lobe, likel y atelectasis and / or pneumonia. No significant effusion. HEART: Unremarkable. No cardiomegaly. No significant pericardial effusion. No evidence of RV dysfunct ion. BONES/JOINTS: No acute fracture. No dislocation. SOFT TISSUES: Unremarkable. LYMPH NODES: Unremarkable. No enlarged lymph nodes. IMPRESSION: 1. No pulmonary embolism is identified. Some of the distal pulmonary arteries cannot be evaluated due to suboptimal opacification. 2. Partially consolidation of the right middle lobe and left lower lobe, likely atelectasis and / or pneumonia. HS:Y
[2024-10-30] MEDS: MORPHINE SULFATE INJ 2 MG/ml SYRG IV PRN ×2 (19:19→22:44)
[2024-10-30 21:00] VITALS: BP 145/83; PULSE 95; RESP 19; TEMP 99.1; O2SAT 96
[2024-10-30 22:15] VITALS: BP 136/82; PULSE 86; RESP 18; TEMP 98.8; O2SAT 97
[2024-10-30] MEDS: ENOXAPARIN SOD 100 MG/1 ML SYRINGE SC SCH (22:32)
[2024-10-30] MEDS: ATORVASTATIN 20 MG TAB PO SCH (22:33)
[2024-10-31] VITALS (10 sets, daily range): BP systolic 144–151; BP diastolic 97–103; PULSE 65–86; RESP 16–20; TEMP 97.8–98.9; O2SAT 92–98
[2024-10-31] MEDS: ACETAMINOPHEN 325 MG TAB PO PRN (01:12)
[2024-10-31] MEDS: cefTRIAXone 1GM/50ML D5W 50 ML IV SCH (09:14)
[2024-10-31] MEDS: ASPirin 81 mg TAB PO SCH (09:18)
[2024-10-31] MEDS: AZITHROMYCIN 500MG/ 250ML 250 ML IV SCH (10:05)
--- NOTE | 2024-10-31 14:20 | DVHPN2 ---
Reviewed: Care Plan, H&P, Labs, Medications, Previous Orders, Radiology Changes from previous H/P or p: No Changes Eyes: No Pain, No Vision change, No Conjunctivae inflammation, No Eyelid inflammation, No Other, No Redness ENT: No Ear pain, No Ear discharge, No Nose pain, No Nose discharge, No Nose congestion, No Mouth pain, No Mouth swelling, No Throat pain, No Throat swelling, No Other Cardiovascular: Chest Pain; No Palpitations, No Orthopnea, No Paroxysmal Noc. Dyspnea, No Edema, No Lt Headedness, No Other Respiratory: Cough; No Dry; Shortness of breath; No SOB with excertion, No Wheezing, No Hemoptysis, No Pleuritic Pain, No Sputum, No Other Gastrointestinal: No Nausea, No Vomiting, No Abdominal Pain, No Diarrhea, No Constipation, No Melena, No Hematochezia, No Other Genitourinary: No Dysuria, No Frequency, No Incontinence, No Hematuria, No Retention, No Other Musculoskeletal: No other, No neck pain, No shoulder pain, No arm pain, No back pain, No hand pain, No leg pain, No foot pain Skin: No Rash, No Lesions, No Jaundice, No Bruising, No Other Objective Vitals Vital Signs Date Time Temp Pulse Resp B/P (MAP) Pulse Ox O2 Delivery O2 Flow Rate FiO2 10/31/24 13:11 98.9 74 20 151/103 (119) 96 98.9 10/31/24 08:00 Room Air* 0 21 Intake/Output Intake and Output 10/31/24 07:00 Intake Total 0 ml Output Total 0 ml Balance 0 ml Intake Oral 0 ml Output Urine Total 0 ml Medications Current Medications Medications Dose Ordered Sig/Dakota Route Start Time Stop Time Status Last Admin Dose Admin Ceftriaxone Sodium 50 ml @ 100 mls/hr DAILY@09 IV 10/31/24 09:00 10/31/24 09:14 100 MLS/HR Azithromycin 250 ml @ 125 mls/hr DAILY IV 10/31/24 10:00 10/31/24 10:05 125 MLS/HR Enoxaparin Sodium 70 mg Q12HR SC 10/30/24 22:00 10/31/24 09:16 70 MG Acetaminophen/ Hydrocodone Bitart 1 tab Q4HP PRN PO 10/30/24 15:45 Ondansetron HCl 4 mg Q4HP PRN IV 10/30/24 15:45 Acetaminophen 650 mg Q6HP PRN PO 10/30/24 15:45 10/31/24 01:12 650 MG Morphine Sulfate 2 mg Q4HPRN PRN IV 10/30/24 15:45 10/31/24 10:05 2 MG Nitroglycerin 0.4 mg Q5MINP PRN SL 10/30/24 15:45 Morphine Sulfate 2 mg Q30M PRN IV 10/30/24 15:45 10/30/24 22:44 2 MG Aspirin 81 mg DAILY PO 10/31/24 10:00 10/31/24 09:18 81 MG Atorvastatin Calcium 40 mg HS PO 10/30/24 22:00 10/30/24 22:33 40 MG Laboratory Results Laboratory Tests 10/30/24 09:54 Labs and/or images reviewed: Labs reviewed by me, Image(s) reviewed by me Assessment/Plan Assessment/Plan Right lower lobe pneumonia: Rocephin azithromycin Pleuritic chest pain Atypical chest pain Diverticulosis Punctate renal calculi Plan discussed with: Patient Date of Service: Oct 31, 2024 Billing Provider: LAURA TORRES MD Common Visit Codes: [id number] INP/OBS CARE(HIGH) LAURA TORRES MD Oct 31, 2024 14:20
[2024-10-31] MEDS: METOPROLOL TARTRATE 25 MG TAB PO ONE (14:53)
[2024-10-31 19:54] LABS: COVID19 ANTIGEN SOFIA FIA NEGATIVE (NEGATIVE)
[2024-10-31 20:17] LABS: Rapid Influenza A Negative (Negative); Rapid Influenza B Negative (Negative)
[2024-10-31] MEDS: METOPROLOL TARTRATE 25 MG TAB PO SCH (22:10)
[2024-11-01] VITALS (8 sets, daily range): BP systolic 106–143; BP diastolic 74–100; PULSE 64–71; RESP 16–21; TEMP 97.9–98.5; O2SAT 94–99
[2024-11-01 07:42] LABS: Amphetamine Screen, Urine Neg (NEGATIVE)
[2024-11-01 07:44] LABS: Opiate Scree,Urine Neg (NEGATIVE)
[2024-11-01 07:50] LABS: Barbiturate Scree,Urine Neg (NEGATIVE); Benzodiazephine Screen, Urine Neg (NEGATIVE); Cannabinoid Screen, Urine Pos (NEGATIVE); Cocaine Screen, Urine Neg (NEGATIVE); Phencyclidine Screen, Urine Neg (NEGATIVE)
--- NOTE | 2024-11-01 11:53 | DVHPN2 ---
Reviewed: Care Plan, H&P, Labs, Medications, Previous Orders, Radiology Changes from previous H/P or p: No Changes Eyes: No Pain, No Vision change, No Conjunctivae inflammation, No Eyelid inflammation, No Other, No Redness ENT: No Ear pain, No Ear discharge, No Nose pain, No Nose discharge, No Nose congestion, No Mouth pain, No Mouth swelling, No Throat pain, No Throat swelling, No Other Cardiovascular: Chest Pain; No Palpitations, No Orthopnea, No Paroxysmal Noc. Dyspnea, No Edema, No Lt Headedness, No Other Respiratory: Cough; No Dry; Shortness of breath; No SOB with excertion, No Wheezing, No Hemoptysis, No Pleuritic Pain, No Sputum, No Other Gastrointestinal: No Nausea, No Vomiting, No Abdominal Pain, No Diarrhea, No Constipation, No Melena, No Hematochezia, No Other Genitourinary: No Dysuria, No Frequency, No Incontinence, No Hematuria, No Retention, No Other Musculoskeletal: No other, No neck pain, No shoulder pain, No arm pain, No back pain, No hand pain, No leg pain, No foot pain Skin: No Rash, No Lesions, No Jaundice, No Bruising, No Other Objective Vitals Vital Signs Date Time Temp Pulse Resp B/P (MAP) Pulse Ox O2 Delivery O2 Flow Rate FiO2 11/01/24 10:50 70 143/98 11/01/24 09:00 98.4 18 97 98.4 10/31/24 20:00 Room Air* 0 21 Intake/Output Intake and Output 11/01/24 07:00 Intake Total 1125 ml Balance 1125 ml Intake Oral 825 ml IV Total 300 ml # Voids 8 Medications Current Medications Medications Dose Ordered Sig/Dakota Route Start Time Stop Time Status Last Admin Dose Admin Ceftriaxone Sodium 50 ml @ 100 mls/hr DAILY@09 IV 10/31/24 09:00 11/01/24 09:23 100 MLS/HR Azithromycin 250 ml @ 125 mls/hr DAILY IV 10/31/24 10:00 11/01/24 10:47 125 MLS/HR Enoxaparin Sodium 70 mg Q12HR SC 10/30/24 22:00 11/01/24 10:50 70 MG Acetaminophen/ Hydrocodone Bitart 1 tab Q4HP PRN PO 10/30/24 15:45 Ondansetron HCl 4 mg Q4HP PRN IV 10/30/24 15:45 Acetaminophen 650 mg Q6HP PRN PO 10/30/24 15:45 10/31/24 01:12 650 MG Morphine Sulfate 2 mg Q4HPRN PRN IV 10/30/24 15:45 10/31/24 20:28 2 MG Nitroglycerin 0.4 mg Q5MINP PRN SL 10/30/24 15:45 Morphine Sulfate 2 mg Q30M PRN IV 10/30/24 15:45 10/30/24 22:44 2 MG Aspirin 81 mg DAILY PO 10/31/24 10:00 11/01/24 10:48 81 MG Atorvastatin Calcium 40 mg HS PO 10/30/24 22:00 10/31/24 22:06 40 MG Metoprolol Tartrate 25 mg BID PO 10/31/24 22:00 11/01/24 10:50 25 MG Laboratory Results Laboratory Tests 10/30/24 09:54 Labs and/or images reviewed: Labs reviewed by me, Image(s) reviewed by me Assessment/Plan Assessment/Plan Right lower lobe pneumonia: Rocephin azithromycin Pleuritic chest pain Atypical chest pain Diverticulosis Punctate renal calculi Plan discussed with: Patient My Orders Orders - LAURA TORRES MD Procedure Category Date Status Time Metoprolol Tartrate PHA 10/31/24 In Process Tablet (Lopressor Ta 22:00 Date of Service: Nov 01, 2024 Billing Provider: LAURA TORRES MD Common Visit Codes: [id number] INP/OBS CARE(HIGH) LAURA TORRES MD Nov 01, 2024 11:52
[2024-11-02 05:00] VITALS: BP 142/91; PULSE 64; RESP 20; TEMP 98; O2SAT 96
[2024-11-02 08:00] VITALS: PULSE 74
[2024-11-02 09:00] VITALS: BP 130/91; PULSE 63; RESP 17; TEMP 97.9; O2SAT 96
[2024-11-02] MEDS ORDERED: LEVO500T91 PO (11:07)
[2024-11-02] MEDS ORDERED: TRAM-626 PO (11:07)
--- NOTE | 2024-11-02 11:09 | DVHPN2 ---
Reviewed: Care Plan, H&P, Labs, Medications, Previous Orders, Radiology Changes from previous H/P or p: No Changes Eyes: No Pain, No Vision change, No Conjunctivae inflammation, No Eyelid inflammation, No Other, No Redness ENT: No Ear pain, No Ear discharge, No Nose pain, No Nose discharge, No Nose congestion, No Mouth pain, No Mouth swelling, No Throat pain, No Throat swelling, No Other Cardiovascular: Chest Pain; No Palpitations, No Orthopnea, No Paroxysmal Noc. Dyspnea, No Edema, No Lt Headedness, No Other Respiratory: Cough; No Dry; Shortness of breath; No SOB with excertion, No Wheezing, No Hemoptysis, No Pleuritic Pain, No Sputum, No Other Gastrointestinal: No Nausea, No Vomiting, No Abdominal Pain, No Diarrhea, No Constipation, No Melena, No Hematochezia, No Other Genitourinary: No Dysuria, No Frequency, No Incontinence, No Hematuria, No Retention, No Other Musculoskeletal: No other, No neck pain, No shoulder pain, No arm pain, No back pain, No hand pain, No leg pain, No foot pain Skin: No Rash, No Lesions, No Jaundice, No Bruising, No Other Objective Vitals Vital Signs Date Time Temp Pulse Resp B/P (MAP) Pulse Ox O2 Delivery O2 Flow Rate FiO2 11/02/24 09:58 67 142/91 11/02/24 05:00 98.0 20 96 98.0 11/01/24 20:00 Room Air* 0 21 Intake/Output Intake and Output 11/02/24 07:00 Intake Total 2350 ml Balance 2350 ml Intake Oral 2050 ml IV Total 300 ml # Voids 10 # Bowel Movements 2 Medications Current Medications Medications Dose Ordered Sig/Dakota Route Start Time Stop Time Status Last Admin Dose Admin Ceftriaxone Sodium 50 ml @ 100 mls/hr DAILY@09 IV 10/31/24 09:00 11/02/24 09:54 100 MLS/HR Azithromycin 250 ml @ 125 mls/hr DAILY IV 10/31/24 10:00 11/02/24 09:54 125 MLS/HR Enoxaparin Sodium 70 mg Q12HR SC 10/30/24 22:00 11/02/24 09:59 70 MG Acetaminophen/ Hydrocodone Bitart 1 tab Q4HP PRN PO 10/30/24 15:45 Ondansetron HCl 4 mg Q4HP PRN IV 10/30/24 15:45 Acetaminophen 650 mg Q6HP PRN PO 10/30/24 15:45 10/31/24 01:12 650 MG Morphine Sulfate 2 mg Q4HPRN PRN IV 10/30/24 15:45 10/31/24 20:28 2 MG Nitroglycerin 0.4 mg Q5MINP PRN SL 10/30/24 15:45 Morphine Sulfate 2 mg Q30M PRN IV 10/30/24 15:45 10/30/24 22:44 2 MG Aspirin 81 mg DAILY PO 10/31/24 10:00 11/02/24 09:59 81 MG Atorvastatin Calcium 40 mg HS PO 10/30/24 22:00 11/01/24 21:09 40 MG Metoprolol Tartrate 25 mg BID PO 10/31/24 22:00 11/02/24 09:58 25 MG Laboratory Results Laboratory Tests 10/30/24 09:54 Labs and/or images reviewed: Labs reviewed by me, Image(s) reviewed by me Assessment/Plan Assessment/Plan Right lower lobe pneumonia: Rocephin azithromycin Pleuritic chest pain Atypical chest pain Diverticulosis Punctate renal calculi Elevated D-dimer 1.78 PE ruled out Cristine test negative Flu test negative Marijuana abuse: Counseled Patient on room air Plan discussed with: Patient Date of Service: Nov 02, 2024 Billing Provider: LAURA TORRES MD Common Visit Codes: [id number] INP/OBS CARE(HIGH) LAURA TORRES MD Nov 02, 2024 11:09
--- NOTE | 2024-11-02 11:14 | DVHDS2 ---
Discharge Summary Date of Admission Oct 30, 2024 at 15:45 Date of Discharge: Nov 02, 2024 Admitting Diagnosis Pleuritic chest pain Wounds: None Labs/Diagnostic Data: Laboratory Results Test 11/01/24 06:30 10/31/24 16:48 10/30/24 09:54 Urine Opiates Screen Neg (NEGATIVE) Urine Fentanyl Screen Neg (NEGATIVE) Urine Barbiturates Screen Neg (NEGATIVE) Urine Phencyclidine Screen Neg (NEGATIVE) Urine Amphetamines Screen Neg (NEGATIVE) Urine Benzodiazepines Screen Neg (NEGATIVE) Urine Cocaine Screen Neg (NEGATIVE) Urine Cannabinoids Screen Pos (NEGATIVE) Influenza Type A Antigen Negative (Negative) Influenza Type B Antigen Negative (Negative) SARS-CoV-2 Antigen (Rapid) Negative (NEGATIVE) White Blood Count 11.9 10^3/uL (4.4-10.8) Red Blood Count 4.50 10^6/uL (4.5-5.90) Hemoglobin 13.3 g/dL (13.5-17.5) Hematocrit 40.7 % (41.0-53.0) Mean Corpuscular Volume 90.4 fL (80.0-100.0) Mean Corpuscular Hemoglobin 29.7 pg (28.0-32.0) Mean Corpuscular Hemoglobin Concent 32.8 g/dL (32.0-36.0) Red Cell Distribution Width 14.1 % (11.8-14.3) Platelet Count 272 10^3/uL (140-450) Mean Platelet Volume 7.7 fL (6.9-10.8) Neutrophils (%) (Auto) % (37.0-80.0) Lymphocytes (%) (Auto) % (10.0-50.0) Monocytes (%) (Auto) % (0.0-12.0) Basophils (%) (Auto) % (0.0-2.0) Neutrophils # (Auto) 10 ^3/uL (1.6-8.6) Lymphocytes # (Auto) 10 ^3/uL (0.4-5.4) Monocytes # (Auto) 10 ^3/uL (0-1.3) Differential Total Cells Counted 100.0 (100) Neutrophils % (Manual) 65 (37.0-80.0) Band Neutrophils % (Manual) 5 Lymphocytes % (Manual) 25 (10.0-50.0) Monocytes % (Manual) 5 (0-12) Eosinophils % (Manual) 0 (0-7) Basophils % (Manual) 0 (0.0-2.0) Metamyelocytes % (manual) 0 Myelocytes % (Manual) 0 Promyelocytes % (Manual) 0 Blast Cells % (Manual) 0 Reactive Lymphocytes 0 Platelet Estimate Adequate D-Dimer, Quantitative 1.78 mg/L FEU (0.0-0.49) Sodium Level 138 mmol/L (136-145) Potassium Level 4.6 mmol/L (3.5-5.1) Chloride Level 108 mmol/L (98-107) Carbon Dioxide Level 19 mmol/L (20-31) Anion Gap 11 (5-15) Blood Urea Nitrogen 7 mg/dL (9-23) Creatinine 0.86 mg/dL (0.700-1.30) Glomerular Filtration Rate Calc 109 mL/min (>90) BUN/Creatinine Ratio 8.1 (10.0-20.0) Serum Glucose 104 mg/dL (74-106) Calcium Level 9.7 mg/dL (8.7-10.4) Troponin I High Sensitivity < 3 ng/L (</=54) Triglycerides Level 100 mg/dL (< 150) Cholesterol Level 190 mg/dL (< 200) LDL Cholesterol 139 mg/dL (< 100) HDL Cholesterol 51 mg/dL (40-59) Thyroid Stimulating Hormone (TSH) 0.82 uIU/mL (0.55-4.78) Other Laboratory Tests 10/30/24 09:54 Brief Hx & Hospital Course: Male with a history of diverticulosis marijuana abuse came in complaining of pleuritic chest pain found to have right lower lobe pneumonia treated with Rocephin and azithromycin D-dimer elevated 1.78 PE ruled out Cristine test negative flu test negative CT abdomen pelvis showed minor punctate renal calculi. Patient had atypical chest pain and at the time of discharge afebrile stable vital signs on room air discharged home on Levaquin and tramadol he will follow up with his primary Dr and discharge clinic Consults/Reason for consult None Operations or Procedures CT chest angiogram Condition at Discharge: Fair Final Diagnosis/Problems List Right lower lobe pneumonia: Rocephin azithromycin Pleuritic chest pain Atypical chest pain Diverticulosis Punctate renal calculi Elevated D-dimer 1.78 PE ruled out Cristine test negative Flu test negative Marijuana abuse: Counseled Discharge Disposition: Home Discharge Instruct/Medications Diet: Regular Activity: Light activity Follow Up/Referral: Follow up with discharge clinic in one week Medications: Levaquin Tramadol Transmitted to the pharmacy 35 (Time taken for discharge summary 35 minutes) Discharge Statement: "Patient was advised to return to the ER or call 911 if any headaches, dizziness, shortness of breath, chest pain, abdominal pain, bleeding, fevers, or worsening of medical condition. Patient was counseled about treatment plan, medications, possible side effects, patientverbalized understanding. All questions were answered to the best of my ability. This discharge took greater then 30 minutes in planning, reviewing documentation, counseling the patient, and discussing with other team members." ASSESSMENT ASSESSMENT Hospital Course Improved Assessment Right lower lobe pneumonia: Rocephin azithromycin Pleuritic chest pain Atypical chest pain Diverticulosis Punctate renal calculi Elevated D-dimer 1.78 PE ruled out Cristine test negative Flu test negative Marijuana abuse: Counseled Date of Service: Nov 02, 2024 Billing Provider: LAURA TORRES MD Common Visit Codes: [id number] DISCH DAY >30min LAURA TORRES MD Nov 02, 2024 11:14
[2024-11-02 13:00] VITALS: BP 146/107; PULSE 77; RESP 20; TEMP 98.3; O2SAT 96
[2024-11-02 14:15] VITALS: BP 142/91; PULSE 67
== END 2024-11-02 14:55 | disposition home or self-care (01) | DRG 137 ==
LOC: ER 07:34 → EDBD 07:34 → TELE 15:45 → TELE-WESTW 22:06
PROVIDERS: ADMIT Family Medicine; ATTEND Family Medicine
DX: J15.69 Pneumonia due to other Gram-negative bacteria (principal); D72.829 Elevated white blood cell count, unspecified; F12.10 Cannabis abuse, uncomplicated; J15.9 Unspecified bacterial pneumonia; K57.30 Diverticulosis of large intestine without perforation or abscess without bleeding; Z20.822 Contact with and (suspected) exposure to COVID-19; N20.0 Calculus of kidney; F17.210 Nicotine dependence, cigarettes, uncomplicated
CPT/HCPCS: 36415; 71045; 71275; 74176; 80048; 80061; 80307; 84443; 84484; 85007; 85027; 85379; 87426; 87804; 96365; 96367; 99291; 99292; G0378

== ENCOUNTER 2025-04-17 01:28 | Emergency (ER) | payer MEDICAID ==
[~2025-04-17] VITALS: Ht 167.6 cm; Wt 65.5 kg
[~2025-04-17 01:28] MED LIST changes: -CIPR-173 PO; -CLIN1CAP70 PO; -DICL50TA2 PO; -HYDR-4902 PO; -IBUP-1456 PO; +LEVO500T91 PO; -METO-281 PO; -TAMS-35 PO; +TRAM-626 PO
[2025-04-17 02:21] VITALS: BP 152/107; PULSE 94; RESP 16; TEMP 97.9; O2SAT 96
[2025-04-17] MEDS ORDERED: CEPH500C PO (02:26)
[2025-04-17] MEDS ORDERED: ACET500T58 PO (02:26)
[2025-04-17] MEDS ORDERED: CLIN1CAP70 PO (02:26)
--- NOTE | 2025-04-17 02:26 | ED.PDOC ---
History of Present Illness(SKN HPI Comments 44-YEAR-OLD MALE PRESENTS TO ER FOR WOUND CHECK. PATIENT REPORTS THAT HE HAS BEEN PICKING AT A WOUND ON LEFT FOREARM THAT HE DEVELOPED FOUR MONTHS AGO S/P INJECTING METHAMPHETAMINE INTO HIS LEFT FOREARM AND PRESENTS TO ER TODAY FOR WOUND CHECK. REPORTS 7/10 PAIN LOCALIZED TO WOUND ON LEFT FOREARM AND PRESENTS TO ER WITH A 3 CM X 3 CM SCABBED WOUND NOTED TO MID LEFT FOREARM WITH MILD ERYTHEMA LOCALIZED TO WOUND EDGES, WITHOUT DRAINAGE/FLUCTUANCE OR RED STREAKING. DENIES FEVER, BODY ACHES, CHILLS, FATIGUE, HEADACHE, WEAKNESS OR ANY FURTHER SYMPTOMS/COMPLAINTS Chief Complaint: Wound Check Time Seen by MD: 02:02 Primary Care Provider: [facility] History of Present Illness: Nurses Notes, Medications, Allergies Allergies: Coded Allergies: NO KNOWN ALLERGIES (Unverified , 02/07/17) Home Meds Active Scripts Cephalexin Monohydrate (Cephalexin) 500 Mg Cap, 1 CAP PO BID for 7 Days, #14 CAP 0 Refills Prov:ADRIANE SCHERER 04/17/25 Clindamycin Hcl (Clindamycin Hcl) 300 Mg Cap, 1 CAP PO TID for 7 Days, #21 CAP 0 Refills Prov:ADRIANE SCHERER 04/17/25 Acetaminophen (Acetaminophen) 500 Mg Tab, 500 MG PO Q4HPRN, #30 TAB 0 Refills Prov:ADRIANE SCHERER 04/17/25 Tramadol HCl (Tramadol HCl) 50 Mg Tab, 50 MG PO QID PRN, #30 TAB Prov:LAURA TORRES MD 11/02/24 Levofloxacin Hemihydrate (LEVAQUIN 500 MG) 500 Mg Tab, 1 TAB PO DAILY, #10 TAB Prov:LAURA TORRES MD 11/02/24 Information Source: Patient Mode of Arrival: Ambulatory Tetanus: UTD Past Medical History PAST MEDICAL HISTORY: Denies Surgical History: Hernia Repair Family History Family History: Unknown Social History Smoker: Cigarettes, Less Than 1 Pack/Day Alcohol: Occasionally Drugs: Marijuana, Methamphetamine Lives In: Home Constitutional: denies: chills, diaphoresis, fatigue, fever, malaise, sweats, weakness, others EENTM: denies: blurred vision, double vision, ear bleeding, ear discharge, ear drainage, ear pain, ear ringing, eye pain, eye redness, hearing loss, mouth pa in, mouth swelling, nasal discharge, nose bleeding, nose congestion, nose pain, photophobia, tearing, throat pain, throat swelling, voice changes, others Respiratory: denies: cough, hemoptysis, orthopnea, SOB at rest, shortness of breath, SOB with excertion, stridor, wheezing, others Cardiovascular: denies: chest pain, dizzy spells, diaphoresis, Dyspnea on exertion, edema, irregular heart beat, left arm pain, lightheadedness, palpitations, PND, syncope, others Gastrointestinal: denies: abdomen distended, abdominal pain, blood streaked bowels, constipated, diarrhea, dysphagia, difficulty swallowing, hematemesis, melena, nausea, poor appetite, poor fluid intake, rectal bleeding, rectal pain, vomiting, others Genitourinary: denies: burning, dysuria, flank pain, frequency, hematuria, incontinence, penile discharge, penile sore, pain, testicle pain, testicle swelling, urgency, others Neurological: denies: dizziness, fainting, headache, left sided numbness, left sided weakness, numbness, paresthesia, pre-existing deficit, right sided numbness, right sided weakness, seizure, speech problems, tingling, tremors, weakness, others Musculoskeletal: denies: back pain, gout, joint pain, joint swelling, muscle pain, muscle stiffness, neck pain, others Integumetry: reports: others ( STATED IN HPI) Allergic/Immunocompromised: denies: Difficulty Healing, Frequent Infections, Hives, Itching, others Hematologic/Lymphatic: denies: anemia, blood clots, easy bleeding, easy bruising, swollen glands, others Endocrine: denies: excessive hunger, excessive sweating, excessive thirst, excessive urination, flushing, intolerance to cold, intolerance to heat, unexplained weight gain, unexplained weight loss, others Psychiatric: denies: anxiety, bipolar disorder, depression, hopeless, panic disorder, schizophrenia, sleepless, suicidal, others Physical Exam General Appearance: No Apparent Distress HEENT: PERRL/EOMI Neck: Full Range of Motion, Non-Tender, Normal Respiratory: Chest Non-Tender, Lungs Clear, No Accessory Muscle Use, No Respiratory Distress, Normal Breath Sounds Cardiovascular: No Murmur, No Gallop, Regular Rate/Rhythm Breast Exam: Deferred Gastrointestinal: NOT DONE Genitalia: Deferred Pelvic: Deferred Rectal: Deferred Extremities: Normal capillary refill, Normal range of motion Neurologic: Alert, No Motor Deficits, Normal Affect, Normal Mood, No Sensory Deficits Cerebellar Function: Normal Reflexes: Normal Skin: Dry, Warm, Other (3 CM X 3 CM SCABBED WOUND NOTED TO MID LEFT FOREARM WITH MILD ERYTHEMA LOCALIZED TO WOUND EDGES. NO DRAINAGE/FLUCTUANCE/FOREIGN BODY OR RED STREAKING APPRECIATED) Peripheral Pulses: 2+ Radial (R), 2+ Radial (L), 2+ Brachial (R), 2+ Brachial (L) Lymphatic: No Adenopathy Was a procedure done? Was a procedure done?: No Sedation Sedation?: No Differential Diagnosis (INTG) Differential Diagnosis: Abrasion Differential Diagnosis: Abscess Differential Diagnosis: Retained Foreign Body X-Ray, Labs, Meds, VS Vital Signs Date Time Temp Pulse Resp B/P (MAP) Pulse Ox O2 Delivery O2 Flow Rate FiO2 04/17/25 02:21 97.9 94 16 152/107 (122) 96 97.9 04/17/25 02:21 Room Air* 0 21 04/17/25 01:54 97.9 94 16 152/107 (122) 96 97.9 ROCEPHIN 1 G IM ORDERED WOUND CARE/CLEANING DISCUSSED AND ADVISED ADVISED ON NO SKIN PICKING METHAMPHETAMINE/CANNABIS/SMOKING CESSATION DISCUSSED AND ADVISED ADVISED TO FOLLOW UP WITH PCP IN 1-2 DAYS PATIENT VERBALIZED UNDERSTANDING AND AGREEABLE WITH CURRENT PLAN OF CARE ADVISED TO RETURN TO ER IMMEDIATELY IF SYMPTOMS WORSEN Time of 1ST Reevaluation: 02:10 Reevaluation 1ST: N/A Patient Education/Counseling: Diagnosis, Treatment, Prognosis, Need For Follow Up Family Education/Counseling: No Family Present SEPSIS Sepsis Screen Date sepsis recognized/suspect: Apr 17, 2025 Time Sepsis recognized/suspect: 015 Recent Procedure: No On Antibiotic Therapy: No Respiratory Rate >20: No Heart Rate >90: Yes Temp<36 C (96.8 F) or >38.3 C: No SBP <90 or MAP <65 mmHG: No New Acute Mental Status Change: No Is the patient on CPAP, BIPAP,: No Physician Orders Ceftriaxone Sodium (Rocephin) (04/17/25 02:30) Vital Signs Date Time Temp Pulse Resp B/P (MAP) Pulse Ox O2 Delivery O2 Flow Rate FiO2 04/17/25 02:21 97.9 94 16 152/107 (122) 96 97.9 04/17/25 02:21 Room Air* 0 21 04/17/25 01:54 97.9 94 16 152/107 (122) 96 97.9 Departure 1 Departure Time of Disposition: 02:24 Impression: Primary Impression: Cellulitis of left forearm Additional Impression: Methamphetamine abuse Disposition: 01 HOME / SELF CARE / HOMELESS Condition: Stable e-Prescriptions Cephalexin Monohydrate (Cephalexin) 500 Mg Cap 1 CAP PO BID for 7 Days, #14 CAP 0 Refills Prov: ADRIANE SCHERER 04/17/25 Clindamycin Hcl (Clindamycin Hcl) 300 Mg Cap 1 CAP PO TID for 7 Days, #21 CAP 0 Refills Prov: ADRIANE SCHERER 04/17/25 Acetaminophen (Acetaminophen) 500 Mg Tab 500 MG PO Q4HPRN, #30 TAB 0 Refills Prov: ADRIANE SCHERER 04/17/25 Discharged With: Friend Critical Care Note Critical Care Time?: No Stability Stability form required: No Heart Score Heart Score: Heart Score Response (Comments) Value History N/A 0 EKG N/A 0 Age N/A 0 Risk Factors N/A 0 Troponin N/A 0 Total 0 ADRIANE SCHERER Apr 17, 2025 02:26
[2025-04-17] MEDS: cefTRIAXone SOD 1,000 MG VL IM ONE (02:30)
== END 2025-04-17 02:34 | disposition home or self-care (01) ==
LOC: ER 01:28
DX: L03.114 Cellulitis of left upper limb (principal); F15.10 Other stimulant abuse, uncomplicated; F17.210 Nicotine dependence, cigarettes, uncomplicated; Z98.890 Other specified postprocedural states
CPT/HCPCS: 96372; 99283; J0696

== ENCOUNTER 2025-07-26 18:49 | Emergency (ER) | payer MEDICAID ==
[~2025-07-26] VITALS: Ht 167.6 cm; Wt 67.7 kg
[~2025-07-26 18:49] MED LIST changes: +ACET500T58 PO; +CEPH500C PO; +CLIN1CAP70 PO
[2025-07-26] MEDS: MORPHINE SULFATE INJ 2 MG/ml SYRG IM ONE (19:30)
--- NOTE | 2025-07-26 19:36 | ED.PDOC ---
GI ASSESSMENT HPI Comments Sherif Scott JR is a 45-year old male, with past medical history of diverticulitis and poly-substance abuse. The patient came to the ED with the chief complain of 2 days of nausea and vomit >#6, of gastric content, associated with dizziness. On further questioning the patient reports he was smoking marijuana and took a dose of fentayl when the symptoms started. Today, the patient reports substernal chest pain, 6/10, pressure-like, continues, that irradiates to the epigastrium, associated with dizziness, this prompted his visit to the ED. In the ED BP: 159/114mmHg, HR: 91bpm. EKG, troponins have been ordered. Chief Complaint: Nausea/Vomiting Time Seen by MD: 18:55 Primary Care Provider: [facility] Reviewed Notes: Nurses Notes, Medications, Allergies Allergies: Coded Allergies: NO KNOWN ALLERGIES (Unverified , 02/07/17) Home Meds Active Scripts Cephalexin Monohydrate (Cephalexin) 500 Mg Cap, 1 CAP PO BID for 7 Days, #14 CAP 0 Refills Prov:ADRIANE SCHERER 04/17/25 Clindamycin Hcl (Clindamycin Hcl) 300 Mg Cap, 1 CAP PO TID for 7 Days, #21 CAP 0 Refills Prov:ADRIANE SCHERER 04/17/25 Acetaminophen (Acetaminophen) 500 Mg Tab, 500 MG PO Q4HPRN, #30 TAB 0 Refills Prov:ADRIANE SCHERER 04/17/25 Tramadol HCl (Tramadol HCl) 50 Mg Tab, 50 MG PO QID PRN, #30 TAB Prov:LAURA TORRES MD 11/02/24 Levofloxacin Hemihydrate (LEVAQUIN 500 MG) 500 Mg Tab, 1 TAB PO DAILY, #10 TAB Prov:LAURA TORRES MD 11/02/24 Information Source: Patient Mode of Arrival: Ambulatory Timing: Days Duration: Since onset Quality: Other (pressure) Vomitus: Food Particles Stool: Normal Severity: Mild Recent: Other (Poly substance use: marijuana and fentanyl) Past Medical History Past Medical History (Other): Diverticulosis Surgical History: Hernia Repair Family History Family History: Reviewed,noncontributory to illness, Unknown Social History Smoker: Cigarettes, Less Than 1 Pack/Day Alcohol: Occasionally Drugs: Marijuana, Methamphetamine, Other (Fentanyl) Lives In: Home Constitutional: denies: chills, diaphoresis, fatigue, fever, malaise, sweats, weakness, others EENTM: denies: blurred vision, double vision, ear bleeding, ear discharge, ear drainage, ear pain, ear ringing, eye pain, eye redness, hearing loss, mouth pain, mouth swelling, nasal discharge, nose bleeding, nose congestion, nose pain, photophobia, tearing, throat pain, throat swelling, voice changes, others Respiratory: denies: cough, hemoptysis, orthopnea, SOB at rest, shortness of breath, SOB with excertion, stridor, wheezing, others Cardiovascular: reports: chest pain; denies: dizzy spells, diaphoresis, Dyspnea on exertion, edema, irregular heart beat, left arm pain, lightheadedness, palpitations, PND, syncope, others Gastrointestinal: reports: nausea, vomiting; denies: abdomen distended, abdominal pain, blood streaked bowels, constipated, diarrhea, dysphagia, difficulty swallowing, hematemesis, melena, poor appetite, poor fluid intake, rectal bleeding, rectal pain, others Genitourinary: denies: burning, dysuria, flank pain, frequency, hematuria, incontinence, penile discharge, penile sore, pain, testicle pain, testicle swelling, urgency, others Neurological: denies: dizziness, fainting, headache, left sided numbness, left sided weakness, numbness, paresthesia, pre-existing deficit, right sided numbness, right sided weakness, seizure, speech problems, tingling, tremors, weakness, others Musculoskeletal: denies: back pain, gout, joint pain, joint swelling, muscle pain, muscle stiffness, neck pain, others Integumetry: denies: bruises, change in color, change in hair/nails, dryness, laceration, lesions, lumps, rash, wounds, others Allergic/Immunocompromised: denies: Difficulty Healing, Frequent Infections, Hives, Itching, others Hematologic/Lymphatic: denies: anemia, blood clots, easy bleeding, easy bruising, swollen glands, others Endocrine: denies: excessive hunger, excessive sweating, excessive thirst, excessive urination, flushing, intolerance to cold, intolerance to heat, unexplained weight gain, unexplained weight loss, others Psychiatric: denies: anxiety, bipolar disorder, depression, hopeless, panic disorder, schizophrenia, sleepless, suicidal, others Physical Exam General Appearance: No Apparent Distress, Normal, Other (The patient looks under the influence of marijuana. ) HEENT: Normal ENT Inspection, Pharynx Normal, TMs Normal Neck: Full Range of Motion, Non-Tender, Normal, Normal Inspection Respiratory: Chest Non-Tender, Lungs Clear, No Accessory Muscle Use, No Respiratory Distress, Normal Breath Sounds Cardiovascular: No Edema, No JVD, No Murmur, No Gallop, Normal Peripheral P ulses, Regular Rate/Rhythm Breast Exam: Deferred Gastrointestinal: No Organomegaly, Non Tender, No Pulsatile Mass, Normal Bowel Sounds, Soft Genitalia: Deferred Pelvic: Deferred Rectal: Deferred Extremities: No calf tenderness, Normal capillary refill, Normal inspection, Normal range of motion, Non-tender, No pedal edema Musculoskeletal : Apperance: Normal Neurologic: Alert, litigation assistant II-XII nml as Tested, No Motor Deficits, Normal Affect, Normal Mood, No Sensory Deficits Cerebellar Function: Normal Reflexes: Normal Skin: Dry, Normal Color, Warm Lymphatic: No Adenopathy Was a procedure done? Was a procedure done?: No GI differential Dx Differential Diagnosis: Gastritis/PUD, Gastroenteritis Other Differential Diagnosis R/O ACS X-Ray, Labs, Meds, VS Vital Signs Date Time Temp Pulse Resp B/P (MAP) Pulse Ox O2 Delivery O2 Flow Rate FiO2 07/26/25 22:00 76 18 142/88 07/26/25 21:50 60 18 98 Room Air* 0 21 07/26/25 21:28 75 15 146/106 07/26/25 21:11 98.0 74 18 145/106 (119) 95 98.0 07/26/25 21:03 75 07/26/25 18:51 97.4 91 16 159/114 99 97.4 Lab Test 07/26/25 20:50 07/26/25 19:40 Range/Units Troponin I High Sensitivity < 3 L < 3 L </=54 ng/L White Blood Count 7.5 4.4-10.8 10^3/uL Red Blood Count 4.91 4.5-5.90 10^6/uL Hemoglobin 15.1 13.5-17.5 g/dL Hematocrit 45.0 41.0-53.0 % Mean Corpuscular Volume 91.6 80.0-100.0 fL Mean Corpuscular Hemoglobin 30.8 28.0-32.0 pg Mean Corpuscular Hemoglobin Concent 33.6 32.0-36.0 g/dL Red Cell Distribution Width 14.3 11.8-14.3 % Platelet Count 284 140-450 10^3/uL Mean Platelet Volume 7.2 6.9-10.8 fL Neutrophils (%) (Auto) 50.2 37.0-80.0 % Lymphocytes (%) (Auto) 40.8 10.0-50.0 % Monocytes (%) (Auto) 5.9 0.0-12.0 % Eosinophils (%) (Auto) 2.6 0.0-7.0 % Basophils (%) (Auto) 0.5 0.0-2.0 % Neutrophils # (Auto) 3.8 1.6-8.6 10 ^3/uL Lymphocytes # (Auto) 3.1 0.4-5.4 10 ^3/uL Monocytes # (Auto) 0.4 0-1.3 10 ^3/uL Eosinophils # (Auto) 0.2 0-0.8 10 ^3/uL Basophils # (Auto) 0 0-0.2 10 ^3/uL Nucleated Red Blood Cells 0.1 % Sodium Level 139 136-145 mmol/L Potassium Level 4.6 3.5-5.1 mmol/L Chloride Level 107 98-107 mmol/L Carbon Dioxide Level 23 20-31 mmol/L Anion Gap 9 5-15 Blood Urea Nitrogen 9 9-23 mg/dL Creatinine 1.05 0.700-1.30 mg/dL Glomerular Filtration Rate Calc 89 >90 mL/min BUN/Creatinine Ratio 8.6 L 10.0-20.0 Serum Glucose 100 74-106 mg/dL Calcium Level 9.3 8.7-10.4 mg/dL Current Medications Medications (Trade) Dose Ordered Sig/Dakota Route Start Time Stop Time Status Last Admin Ondansetron HCl (Zofran) 4 mg ONCE ONCE IV 07/26/25 19:30 07/26/25 19:32 DC 07/26/25 20:30 Morphine Sulfate 2 mg ONCE ONCE IV 07/26/25 21:00 07/26/25 21:01 DC 07/26/25 21:28 Patient alert. Vitals stable. Marijuana induced. Answering questions. Was given Zofran. Was given morphine. WBC within normal limits. Cardiac marker within normal limits. No leg swelling. No shortness a breath. No acute process. Counseled patient on effects of using drugs for 15 minutes. Explained to the patient. Was told to follow up with his primary care physician. Was told to come back if there is any problem. X-Ray, Labs, Meds, VS Comment 20:20 The patient was re-assessed. Nausea has improved after medications. CBC: WNL CMP: WNL Troponin <3 Time of 1ST Reevaluation: 20:20 Reevaluation 1ST: Improved Patient Education/Counseling: Diagnosis, Treatment, Prognosis, Need For Follow Up Family Education/Counseling: No Family Present SEPSIS Sepsis Screen Date sepsis recognized/suspect: Jul 26, 2025 Time Sepsis recognized/suspect: 1853 Recent Procedure: No On Antibiotic Therapy: No Respiratory Rate >20: No Heart Rate >90: Yes Temp<36 C (96.8 F) or >38.3 C: No SBP <90 or MAP <65 mmHG: No New Acute Mental Status Change: No Is the patient on CPAP, BIPAP,: No Physician Orders Urinalysis (07/26/25 19:28) Electrocardigram (07/26/25 20:28) Drug Screen (07/26/25 19:28) Vital Signs Date Time Temp Pulse Resp B/P (MAP) Pulse Ox O2 Delivery O2 Flow Rate FiO2 07/26/25 22:00 76 18 142/88 07/26/25 21:50 60 18 98 Room Air* 0 21 07/26/25 21:28 75 15 146/106 07/26/25 21:11 98.0 74 18 145/106 (119) 95 98.0 07/26/25 21:03 75 07/26/25 18:51 97.4 91 16 159/114 99 97.4 Laboratory Tests Test 07/26/25 19:40 White Blood Count 7.5 10^3/uL (4.4-10.8) Departure 1 Departure Time of Disposition: 21:53 Impression: Primary Impression: Cannabinoid hyperemesis syndrome Disposition: 01 HOME / SELF CARE / HOMELESS Condition: Good Additional Instructions: Additional instructions: Please read all instructions provided in this packet carefully. You MUST follow-up with your primary care/family doctor in 1 to 2 days. If you are unable to see your primary care/family doctor, please return to our emergency room for re-assessment and re-evaluation in 1 to 2 days. Return to the emergency room here in our facility or to the nearest ER [facility] if your symptoms change or worsen. CONSULTATIONS: you MUST Follow-up for consultation as soon as possible with: -your specialist GI doctor in 1-2 days. You MUST call the consultants office yourself to make an appointment. You may need to arrange that through your insurance and/or your primary/family doctor. If you are unable to see the hospice care sales consultant in 1 to 2 days, you must return to our emergency room (or any other ER of your choice) for re-assessment and re- evaluation. Adequate fluid hydration. Although you have been discharged from the Emergency Department, this does not mean that you have a "clean bill of health". No definitive diagnosis for your symptoms has been made today. It is possible that you are in the process of developing a serious illness. This is why you must return to the ED without fail if any new or worsening symptoms develop. Discharged With: Self Comments Goals of care discussed with the patient > 35 min. Discussed plan of care with Dr. Mojica Code status: Full code PCP: No established. Plan discussed with: Patient, the patient agrees with the plan. Critical Care Note Critical Care Time?: No Stability Stability form required: No Heart Score Heart Score: Heart Score Response (Comments) Value History Slightly Suspicious 0 EKG Normal 0 Age 45-64 1 Risk Factors No known risk factors 0 Troponin Normal limit 0 Total 1 FADIA YUN RESIDENT Jul 26, 2025 19:36 FLORIDALMA MOJICA MD Jul 26, 2025 21:53
[2025-07-26 19:49] LABS: Hematocrit 45.0 % (41.0-53.0); Hemoglobin 15.1 g/dL (13.5-17.5); Mean Corpuscular Hemoglobin 30.8 pg (28.0-32.0); Mean Corpuscular Volume 91.6 fL (80.0-100.0); Nucleated Red Blood Cells % 0.1 %
[2025-07-26 19:57] LABS: Potassium 4.6 mmol/L (3.5-5.1); Sodium 139 mmol/L (136-145)
[2025-07-26 19:58] LABS: Anion Gap 9 (5-15); Carbon Dioxide 23 mmol/L (20-31)
[2025-07-26 19:59] LABS: Calcium 9.3 mg/dL (8.7-10.4)
[2025-07-26 20:03] LABS: BUN/Creatinine Ratio 8.6 (10.0-20.0); Blood Urea Nitrogen 9 mg/dL (9-23); Glucose 100 mg/dL (74-106)
[2025-07-26 20:11] LABS: Chloride 107 mmol/L (98-107)
[2025-07-26] MEDS: ONDANSETRON HCL 4 MG/2 ML VIAL IV ONE (20:30)
[2025-07-26] MEDS: MORPHINE SULFATE 4 MG/ML SYR/VIAL IV ONE (20:59)
[2025-07-26] MEDS: MORPHINE SULFATE 4 MG/ML SYR/VIAL IM ONE (21:01)
--- NOTE | 2025-07-26 21:04 | ECG ---
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
[2025-07-26 21:11] VITALS: TEMP 98
[2025-07-26 21:50] VITALS: PULSE 60; RESP 18; O2SAT 98
[2025-07-26 22:00] VITALS: BP 142/88; PULSE 76; RESP 18
== END 2025-07-26 22:25 | disposition home or self-care (01) ==
LOC: ER 18:52
DX: R11.16 Cannabis hyperemesis syndrome (principal); F12.90 Cannabis use, unspecified, uncomplicated; F17.210 Nicotine dependence, cigarettes, uncomplicated; Z98.890 Other specified postprocedural states; Y90.9 Presence of alcohol in blood, level not specified
CPT/HCPCS: 36415; 80048; 84484; 85025; 93005; 96374; 96375; 99285; J2270; J2405